=== PATIENT | female | born 1945 | race Caucasian/White ===

== ENCOUNTER 2021-03-14 11:50 | Emergency (ER) | payer OTHER ==
[2021-03-14 13:20] LABS: Basophils % 0.3 % (0-1.3); Hematocrit 42.7 % (36.0-45.0); Lymphocytes % 10.3 % (15.3-44.8); MPV 7.5 fL (7.6-11.3); RBC Red Blood Cell Count 4.79 M/uL (3.86-4.86)
[2021-03-14 13:34] LABS: Bilirubin Direct 0.2 mg/dL (0-0.2); Bilirubin Total 0.4 mg/dL (0.2-1.0); Potassium 3.5 mmol/L (3.5-5.1); Protein, Total 7.1 g/dL (6.4-8.2)
[2021-03-14] MEDS ORDERED: NA CHLORIDE 0.9% 1,000 ML ONE (13:39)
[2021-03-14] MEDS ORDERED: ONDANSETRON 4 MG/2 ML VIAL ONE (13:39)
[2021-03-14] MEDS ORDERED: MORPHINE 4 MG/ML SYR ONE (13:39)
--- NOTE | 2021-03-14 14:15 | RAD REPORT ---
EXAM DESCRIPTION: CTAbdomen Pelvis W Contrast - 03/14/2021 2:00 pm CLINICAL HISTORY: ABD PAIN COMPARISON: No comparisons TECHNIQUE: CT of the abdomen and pelvis was performed. All CT scans are performed using dose optimization technique as appropriate and may include automated exposure control or mA/KV adjustment according to patient size. FINDINGS: Lower chest: Coronary artery calcifications. Liver: Small volume ascites posterior to the right hepatic lobe. No focal liver lesions are identifie d. Biliary: No biliary ductal dilatation. Stomach: No significant focal abnormality. Duodenum: No significant focal abnormality. Pancreas: No significant abnormality. Spleen: No significant abnormality. Adrenal: No suspicious lesions. Kidney/ureter: No hydronephrosis. No renal calculi. Too small to characterize and/or benign appearing renal lesions are noted. Retroperitoneum: No retroperitoneal adenopathy. Vascular: Atherosclerosis. Bowel: No significant focal abnormality. Peritoneum: No ascites or free air. Bladder: Grossly unremarkable. Reproductive: Hysterectomy Bones: No acute fracture. Other: n/a IMPRESSION: Small volume of perihepatic ascites of uncertain etiology. No other acute process identi fied .
[2021-03-14] MEDS ORDERED: KETOROLAC 30 MG/ML INJ ONE (15:58)
--- NOTE | 2021-03-14 16:53 | RAD REPORT ---
EXAM DESCRIPTION: US - Abdomen Exam Limited - 03/14/2021 4:17 pm CLINICAL HISTORY: ABD PAIN COMPARISON: Abdomen Pelvis W Contrast dated 03/14/2021 FINDINGS: The gallbladder demonstrates no gallstones. No pericholecystic fluid or gallbladder wall t hickening. The common bile duct is normal measuring 3 mm. The liver demonstrates no findings of intrahepatic biliary dilatation. IMPRESSION: Unremarkable examination.
--- NOTE | 2021-03-14 16:58 | EDPHYS ---
Physician Documentation [facility] Name: Kavitha Augustine Age: 75 yrs Sex: Female : 1945 Arrival Date: 03/14/2021 Time: 11:53 Bed 28 Private MD: Daniel Hoang E ED Physician Eric Olson HPI: 03/14 16:14 This 75 yrs old Female presents to ER via Ambulatory with complaints of kb Abdominal Pain. 16:17 The patient presents with abdominal pain in the right upper quadrant, right lower kb quadrant. Onset: The symptoms/episode began/occurred this morning, at 06:00. The symptoms do not radiate. Associated signs and symptoms: none. The symptoms are described as constant. Modifying factors: The symptoms are alleviated by nothing, the symptoms are aggravated by nothing. Severity of pain: At its worst the pain was moderate in the emergency department the pain is unchanged. The patient has not experienced similar symptoms in the past. The patient has not recently seen a physician. Pt reports right mid abd pain that started at 0600. Has not had this pain in the past. Denies fever, n/v/d. Historical: - Allergies: 12:17 No Known Allergies; jl7 - Home Meds: 12:17 Aspirin Oral [Active]; valsartan 80 mg oral tab 1 tab 2 times per day [Active]; jl7 atorvastatin 10 mg oral tab [Active]; spironolactone 25 mg Oral tab [Active]; Zoloft Oral [Active]; ezetimibe 10 mg oral tab 1 tab once daily [Active]; - PMHx: 12:17 Hypertensive disorder; Hypercholesterolemia; Depressive disorder; jl7 - PSHx: 12:17 section; Total abdominal hysterectomy; jl7 - Immunization history:: Client reports receiving the 2nd dose of the Covid vaccine, Pfizer. - Social history:: Smoking status: Patient denies any tobacco usage or history of. ROS: 16:20 Constitutional: Negative for fever, chills, and weight loss. kb 16:20 Abdomen/GI: Positive for abdominal pain, Negative for nausea, vomiting, and diarrhea. 16:20 All other systems are negative. Exam: 16:21 Constitutional: This is a well developed, well nourished patient who is awake, alert, kb and in no acute distress. Head/Face: Normocephalic, atraumatic. ENT: Moist Mucous membranes Cardiovascular: Regular rate and rhythm with a normal S1 and S2. No gallops, murmurs, or rubs. No pulse deficits. Respiratory: Respirations even and unlabored. No increased work of breathing, no retractions or nasal flaring. Skin: Warm, dry with normal turgor. Normal color. MS/ Extremity: Pulses equal, no cyanosis. Neurovascular intact. Full, normal range of motion. Neuro: Awake and alert, GCS 15, oriented to person, place, time, and situation. Moves all extremities. Normal gait. Psych: Awake, alert, with orientation to person, place and time. Behavior, mood, and affect are within normal limits. 16:21 Abdomen/GI: Inspection: bruising, Bowel sounds: normal, Palpation: moderate abdominal tenderness, in the right upper quadrant and right lower quadrant. Vital Signs: 12:16 BP 139 / 59; Pulse 62; Resp 17; Temp 98.6; Pulse Ox 100% ; Weight 49.9 kg; Height 5 ft. jl7 5 in. (165.10 cm); Pain 7/10; 13:46 BP 125 / 53 RA (auto/reg); Pulse 55; Resp 18; Pulse Ox 100% ; Pain 0/10; ap3 15:01 BP 122 / 53; Pulse 56; Resp 17; Pulse Ox 100% on R/A; ap3 16:15 BP 134 / 57; Pulse 55; Resp 19; Pulse Ox 97% on R/A; ap3 12:16 Body Mass Index 18.30 (49.90 kg, 165.10 cm) jl7 MDM: 12:55 Patient medically screened. kb 16:14 Data reviewed: vital signs, nurses notes. Data interpreted: Pulse oximetry: on room air kb is 100 %. Interpretation: normal. Counseling: I had a detailed discussion with the patient and/or guardian regarding: the historical points, exam findings, and any diagnostic results supporting the discharge/admit diagnosis, lab results, radiology results, the need for outpatient follow up, a family practitioner, a registrar assistant, to return to the emergency department if symptoms worsen or persist or if there are any questions or concerns that arise at home. 03/14 13:02 Order name: Basic Metabolic Panel; Complete Time: 13:34 kb 03/14 13:02 Order name: CBC with Diff; Complete Time: 13:34 kb 03/14 13:02 Order name: Hepatic Function; Complete Time: 13:34 kb 03/14 13:02 Order name: Lipase; Complete Time: 13:34 kb 03/14 13:02 Order name: CT Abd/Pelvis - IV Contrast Only; Complete Time: 14:22 kb 03/14 15:22 Order name: US Abdomen Limited; Complete Time: 16:57 kb 03/14 13:02 Order name: IV Saline Lock; Complete Time: 13:10 kb 03/14 13:02 Order name: Labs collected and sent; Complete Time: 13:10 kb Administered Medications: 13:21 Drug: morphine 4 mg Route: IVP; Site: left antecubital; ap3 15:48 Follow up: Response: No adverse reaction; RASS: Alert and Calm (0) ap3 13:21 Drug: Zofran (Ondansetron) 4 mg Route: IVP; Site: left antecubital; ap3 15:48 Follow up: Response: No adverse reaction ap3 13:21 Drug: NS 0.9% 1000 ml Route: IV; Rate: 1000 ml; Site: left antecubital; ap3 15:31 Drug: Ketorolac 15 mg Route: IVP; Site: left antecubital; ap3 Disposition: 03/15 12:49 Co-signature as Attending Physician, Eric Olson MD I agree with the assessment and kdr plan of care. Disposition Summary: 03/14/21 16:57 Discharge Ordered Location: Home kb Condition: Stable kb Diagnosis - Abdominal pain, Generalized kb Followup: kb - With: Emergency Department - When: As needed - Reason: Worsening of condition Followup: kb - With: - When: 2 - 3 days - Reason: Recheck today's complaints, Continuance of care, Re-evaluation by your physician Discharge Instructions: - Discharge Summary Sheet kb - Abdominal Pain, Adult, [id number] kb Forms: - Medication Reconciliation Form kb - Thank You Letter kb - Antibiotic Education kb - Prescription Opioid Use kb Prescriptions: - Diclofenac Sodium 75 mg Oral tablet,delayed release (DR/EC) - take 1 tablet by ORAL route 2 times per day As needed; 30 tablet; Refills: 0, kb Product Selection Permitted Signatures: Dispatcher [employer] EDHenna Robledo, LEAD DATA ARCHITECT-C LEAD DATA ARCHITECT-Ckb Eric Olson MD MD kdr Jose Willis, RN RN jl7 Carolynn Oconnor RN RN ap3
--- NOTE | 2021-03-14 16:58 | ER ---
Nurse's Notes [facility] Name: Kavitha Augustine Age: 75 yrs Sex: Female : 1945 Arrival Date: 03/14/2021 Time: 11:53 Bed 28 Private MD: Daniel Hoang E Diagnosis: Abdominal pain, Generalized Presentation: 03/14 12:16 Chief complaint: Patient states: Intermittent RUQ abdominal pain since this morning at 7 0600, denies N//V/D. Coronavirus screen: At this time, the client does not indicate any symptoms associated with coronavirus-19. Ebola Screen: No symptoms or risks identified at this time. Initial Sepsis Screen: Does the patient meet any 2 criteria? No. Patient's initial sepsis screen is negative. Does the patient have a suspected source of infection? No. Patient's initial sepsis screen is negative. Risk Assessment: Do you want to hurt yourself or someone else? Patient reports no desire to harm self or others. Onset of symptoms was March 14, 2021 at 06:00. 12:16 Method Of Arrival: Ambulatory [facility] 12:16 Acuity: WANDA 3 jl7 Historical: - Allergies: 12:17 No Known Allergies; jl7 - Home Meds: 12:17 Aspirin Oral [Active]; valsartan 80 mg oral tab 1 tab 2 times per day [Active]; jl7 atorvastatin 10 mg oral tab [Active]; spironolactone 25 mg Oral tab [Active]; Zoloft Oral [Active]; ezetimibe 10 mg oral tab 1 tab once daily [Active]; - PMHx: 12:17 Hypertensive disorder; Hypercholesterolemia; Depressive disorder; jl7 - PSHx: 12:17 section; Total abdominal hysterectomy; jl7 - Immunization history:: Client reports receiving the 2nd dose of the Covid vaccine, Pfizer. - Social history:: Smoking status: Patient denies any tobacco usage or history of. Screenin:50 Abuse screen: Denies threats or abuse. Nutritional screening: No deficits noted. ap3 Tuberculosis screening: No symptoms or risk factors identified. Fall Risk None identified. Assessment: 12:49 General: Appears uncomfortable, Behavior is calm, cooperative. Pain: Complains of pain ap3 in right lower quadrant. Neuro: Level of Consciousness is awake, alert, obeys commands, Oriented to person, place, time, situation, Appropriate for age Moves all extremities. Gait is steady, Speech is normal, Facial symmetry appears normal. Cardiovascular: Patient's skin is warm and dry. Respiratory: Airway is patent Respiratory effort is even, unlabored, Respiratory pattern is regular, symmetrical. GI: Bowel sounds present X 4 quads. Abd is soft X 4 quads Abdomen is tender to palpation in right lower quadrant. 15:02 Reassessment: Patient and/or family updated on plan of care and expected duration. Pain ap3 level reassessed. Patient is alert, oriented x 3, equal unlabored respirations, skin warm/dry/pink. Vital Signs: 12:16 BP 139 / 59; Pulse 62; Resp 17; Temp 98.6; Pulse Ox 100% ; Weight 49.9 kg; Height 5 ft. jl7 5 in. (165.10 cm); Pain 7/10; 13:46 BP 125 / 53 RA (auto/reg); Pulse 55; Resp 18; Pulse Ox 100% ; Pain 0/10; ap3 15:01 BP 122 / 53; Pulse 56; Resp 17; Pulse Ox 100% on R/A; ap3 16:15 BP 134 / 57; Pulse 55; Resp 19; Pulse Ox 97% on R/A; ap3 12:16 Body Mass Index 18.30 (49.90 kg, 165.10 cm) jl7 ED Course: 11:53 Patient arrived in ED. mr 11:53 Daniel Hoang MD is Private Physician. mr 12:17 Triage completed. jl7 12:17 Arm band placed on right wrist. jl7 12:49 Carolynn Oconnor, RN is Primary Nurse. ap3 12:51 Patient has correct armband on for positive identification. Placed in gown. Bed in low ap3 position. Call light in reach. Side rails up X 1. Adult w/ patient. Pulse ox on. NIBP on. Door closed. Noise minimized. 12:54 Henna Perez FNP-C [facility]. kb 12:54 Eric Olson MD is Attending Physician. kb 14:00 CT Abd/Pelvis - IV Contrast Only In Process Unspecified. EDMS 16:17 US Abdomen Limited In Process Unspecified. EDMS 16:57 Daniel Hoang MD is Referral Physician. kb 17:06 No provider procedures requiring assistance completed. IV discontinued, intact, ld1 bleeding controlled, No redness/swelling at site. Administered Medications: 13:21 Drug: morphine 4 mg Route: IVP; Site: left antecubital; ap3 15:48 Follow up: Response: No adverse reaction; RASS: Alert and Calm (0) ap3 13:21 Drug: Zofran (Ondansetron) 4 mg Route: IVP; Site: left antecubital; ap3 15:48 Follow up: Response: No adverse reaction ap3 13:21 Drug: NS 0.9% 1000 ml Route: IV; Rate: 1000 ml; Site: left antecubital; ap3 15:31 Drug: Ketorolac 15 mg Route: IVP; Site: left antecubital; ap3 Outcome: 16:57 Discharge ordered by MD. kb 17:07 Discharged to home ambulatory, with family. ld1 17:07 Condition: stable 17:07 Discharge instructions given to patient, family, Instructed on discharge instructions, follow up and referral plans. medication usage, Demonstrated understanding of instructions, follow-up care, medications, Prescriptions given X 1. 17:07 Patient left the ED. ld1 Signatures: Dispatcher [employer] EDMS Henna Perez, SCHOOL BUS DISPATCHER-C SCHOOL BUS DISPATCHER-Belinda ReiEle Jose Willis RN RN jl7 Carolynn Oconnor RN RN ap3 Viki Matamoros RN RN ld1
[2021-03-14 17:11] VITALS: TEMP 98.6
[2021-03-14 17:15] VITALS: BP 134/57; O2SAT 97
== END 2021-03-14 17:07 | disposition home or self-care (01) ==
LOC: ER 11:50
DX: R10.84 Generalized abdominal pain (principal); E78.00 Pure hypercholesterolemia, unspecified; I10 Essential (primary) hypertension; Z79.82 Long term (current) use of aspirin
CPT/HCPCS: 85025; 80048; 36415; 80076; 83690; 74177; 76705; 96375; 96374; 99284; Q9967; J7030; J2405

== ENCOUNTER 2023-04-12 10:29 | Emergency (ER) | payer OTHER ==
--- OUTSIDE RECORDS SUMMARY | 2023-04-12 10:35 | XMS REPORT | Continuity of Care Document ---
:1945 Author Organization [facility] t Address [address] [place] [address] [place] [id number] Care Team Providers Name Role Phone Natalya Kline MD, Daniel Primary Care Physician [phone] Jeanne Bearden MA Attending Clinician Unavailable Yun VEGA, Amalia Mullins Attending Clinician [phone] [email or web address] Attending Clinician Unavailable Aubrey VEGA, Hipolito North Attending Clinician [email or web address] Attending Clinician Unavailable Lisse_S Attending Clinician Unavailable Rina Ortez Attending Clinician [phone] BEKAH BARROS Attending Clinician Unavailable JIN PALACIO Attending Clinician Unavailable [email or web address] Admitting Clinician Unavailable [email or web address] Admitting Clinician Unavailable Lisse_S Admitting Clinician Unavailable JIN PALACIO Admitting Clinician Unavailable Payers Payer Name Policy Type Policy Number Effective Date Expiration Date S pati ROBERT (MEDICARE [id number] 2013 REPLACEMENT PPO) 00:00:00 Problems Condition Condition Condition Status Onset Resolution Last Treating Co mments Source Name Details Category Date Date Treatment Clinician Date Chronic Chronic Problem Active [facility] infective Infective -04 [facility] pavithra cystitis Cystitis 00:00: 00 Atrophic Atrophic Disease Active [facility] vaginitis vaginitis 12-09 00:00: Hosp[facility] 00 l Urge Urge Disease Active [facility] incontinen incontinen 12-09 st ce of ce of 00:00: Hospita urine urine 00 l Cerebral Cerebral Disease Active [facility] ventriculo ventriculo 11-06 [facility] megaly megaly 00:00: Hospita 00 l 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 Multiple small chronic infarcts noted on brain MRI w/wo 12/06/17. Location: right pontine lacune, left cerebella r cortical, right cerebella r. 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 Abnormalit Abnormalit Disease Recurre [facility] y of gait y of gait nce 6-14 st due to due to 00:00: Hospita impairment impairment 00 l of balance of balance Head Head Disease Recurre Overview: [facility] trauma trauma nce 6-[address] 00:00: g of this Hospita 00 note l might be different from the original. Multiple due to falls. Loss of Loss of Disease Active 2016-05 [facility] hair hair 07-01 st 00:00: Hospita 00 l Pain of Pain of Disease Active 2016-05 [facility] right right 2 st lower lower 00:00: Hospita extremity extremity 00 l Edema Edema Disease Active [facility] 09-16 st 00:00: [facility]ospita 00 l Hypertensi Hypertensi Disease Active M [facility] on on 4-19 st 00:00: Hospita 00 l Hyperlipid Hyperlipid Disease Active M ethodi emia emia 09-16 00:00: Hospita 00 l Hypothyroi Hypothyroi Disease Active M [facility] dism dism 09-16 00:00: Hospita 00 l Hyperthyro Hyperthyro Disease Active M [facility]i idism idism 09-16 00:00: Hospita 00 l Chronic Chronic Disease Active [facility] coronary coronary 09-16 artery artery 00:00: [facility]ospita disease disease 00 l Disorder Disorder Problem Active [facility] a of trunk of Trunk 02-15 Medica l 00:00: 00 Herpes Herpes Disease Active [facility] zoster zoster 02-15 st with with 00:00: Hospita nervous nervous 00 l system system complicati complicati on on Meralgia Meralgia Disease Active [facility] parestheti parestheti 02-15 ca ca 00:00: Hospita 00 l Allergies, Adverse Reactions, Alerts Allergy Allergy Status Severity Reaction(s) Onset Inactive Treating Comm ents Source Name Type Date Date Clinician Codeine Propensi Active Other (See Met hodi ty to Comments) 07-22 st adverse 00:00: Hospita reaction 00 l s to drug Sulfa Propensi Active Unknown 2019-05 [facility] (Sulfona ty to Reaction 06-10 st mide adverse 00:00: Hospita Antibiot reaction 00 l ics) s to drug Ciproflo Propensi Active 2016-05 [facility] xacin-Fl ty to 07-01 st uocinolo adverse 00:00: Hospita ne reaction 00 l s to drug Quinolon Propensi Active 2016-05 [facility] es ty to 07-01 st adverse 00:00: Hospita reaction 00 l s to drug Naproxen Propensi Active Hives [facility] Sodium ty to 09-18 st adverse 00:00: Hospita reaction 00 l s to drug Pseudoep Propensi Active Other (See Keeps her [facility] hedrine ty to Comments) 09-[address] Hcl adverse 00:00: night Hospita reaction 00 l s to drug Aleve Allergy Active [facility] to 02-15 Medical substanc 00:00: e 00 Codeine Allergy Active [facility] to Medical substanc e SULFA Allergy Active [facility] (SULFONA to Medical MIDE substanc ANTIBIOT e ICS) Lisinopr Propensi Active [facility] i il ty to st adverse Hospita reaction l s to drug Rosuvast Propensi Active Other [facility] atin ty to reaction( st adverse s): Hospita reaction Myalgias l s to (Muscle drug Pain) Simvasta Propensi Active Other [facility] tin ty to reaction( st adverse s): Hospita reaction Myalgias l s to (Muscle drug Pain) Family History Family Member Diagnosis Comments Start Date Stop Date Source Natural brother Heart disease [facility] father Heart disease [facility] father Hypertension [facility] Natural mother Heart disease [facility] mother Hypertension [facility] Paternal grandmother Throat cancer [facility] sister Heart disease [facility] sister Hypertension [facility] Social History Social Habit Start Date Stop Date Quantity Comments Source Sexual orientation 2019-12-17 Heterosexual [facility] 22:09:28 (finding) Hospital Alcohol intake 2022-06-07 2022-06-07 Current drinker of [facility] 00:00:00 00:00:00 alcohol (finding) Hospita l History of Social 2022-06-07 2022-06-[address] function 00:00:00 00:00:00 Hospital Alcohol Comment 2017-11-29 2017-11-29 occasional [facility] 00:00:00 00:00:00 Hospital Tobacco use and 2016-09-16 2016-09-16 Smokeless tobacco [facility] exposure 00:00:00 00:00:00 non-user Hospital Sex Assigned At [birth year] F [facility] 00:00:00 00:00:00 Hospital Smoking Status Start Date Stop Date Source Never smoked tobacco [facility] Medications Ordered Filled Start Stop Current Ordering Indication Dosage Frequency Signature Comments Components Source Medication Medication Date Date Medication? Clinician (SIG) Name Name atorvastati Yes TAKE ONE [facility] (LIPITOR) 8-[address] 10 mg 00:00: MOUTH Hospita tablet 00 THREE l TIMES A WEEK valsartan Yes TAKE 2 [facility] i (DIOVAN) 80 6-[address] MG tablet 00:00: (160 MG) Hosp long 00 BY MOUTH l TWICE A DAY spironolact 2022-0 Yes TAKE 1 [facility] one 2-[address] (ALDACTONE) 00:00: MOUTH Hospi ta 25 MG 00 EVERY DAY l tablet multivitami 2022-0 Yes 1{tbl} QD Take 1 [facility] 1-[address] (THERAGRAN) 15:08: mouth Hospi ta tablet 12 daily. l loperamide 2022-0 Yes 1{tbl} Take 1 Met hodi HCl 1-[address] (IMODIUM 15:08: mouth as Hospi ta A-D ORAL) 12 needed. l estrogens, 2022-0 Yes .625mg QD Take 0.625 [facility] conjugated, 1-[address] (PREMARIN) 15:08: mouth Hospit a 0.625 MG 12 daily. l tablet cyanocobala 2022-0 Yes QD Take by Met hodi min, 1-[address] vitamin 15:08: daily. Hospita B-12, 12 l (VITAMIN B-12 ORAL) cholecalcif 2022-0 Yes 5000U QD Take 5,000 [facility] brianne, 1-[address] vitamin D3, 15:08: mouth Hospi ta 5,000 unit 12 daily. l capsule omeprazole 2022-0 Yes 20mg QD Take 20 mg M ethodi (PriLOSEC) 1-[address] 20 MG 15:08: daily. Hospita capsule 12 l levothyroxi 2022-0 Yes 25ug QD Take 25 Met hodi ne 1-[address] (SYNTHROID) 15:08: mouth Hospi ta 25 mcg 12 daily. l tablet gabapentin 2022-0 Yes 100mg [id number] Take 100 [facility] (NEURONTIN) 1-04 [id number] mg by s t 100 mg 15:08: 3D mouth 3 Hospita capsule 12 (three) l times a day. estrogens, 2022-0 Yes .625mg QD Take 0.625 [facility] conjugated, 1-[address] (PREMARIN) 15:08: mouth Hospit a 0.625 MG 12 daily. l tablet Take daily for 21 days then do not take for 7 days. aspirin 2022-0 Yes 81mg QD Take 81 mg Meth [facility] (ECOTRIN) 1-[address] 81 MG 15:05: daily. Hospita enteric 55 l coated tablet ascorbic Yes QD Take by [facility] acid -[address] (VITAMIN C 15:05: daily. Hospi ta ORAL) 55 l sertraline Yes TAKE 2 [facility] di (ZOLOFT) 50 7-[address] MG tablet 00:00: MOUTH Hospita 00 EVERY DAY l atorvastati 2022- No TAKE ONE M ethodi n (LIPITOR) 11-[address] 10 mg 00:00: 00:00 MOUTH Hospita tablet 00 :00 THREE l TIMES A WEEK valsartan 2022- No TAKE 2 [facility] di (DIOVAN) 80 11-03-[address] MG tablet 00:00: 00:00 (160 MG) Hos tiffany 00 :00 BY MOUTH l TWICE A DAY ezetimibe Yes TAKE 1 [facility] i (ZETIA) 10 06-[address] mg tablet 00:00: MOUTH Hospita 00 EVERY DAY l spironolact 2022- No TAKE 1 Met hodi one 06-02 02-[address] (ALDACTONE) 00:00: 00:00 MOUTH Hosp long 25 MG 00 :00 EVERY DAY l tablet diltiazem 2020-05- No 120mg Q.5D Take 1 [facility] garry SR [id number] (CardIZEM 00:00: 05:59 (120 mg Hosp long SR) 120 MG 00 :00 total) by l 12 hr mouth 2 capsule (two) times a day. aspirin 81 aspirin 81 No aspirin 81 [facility] mg mg mg Medical atorvastati atorvastati No atorvastat [facility] n 10 mg n 10 mg in 10 mg Medic al tablet TAKE tablet TAKE tablet ONE TABLET ONE TABLET TAKE ONE BY MOUTH BY MOUTH TABLET BY THREE TIMES THREE TIMES MOUTH A WEEK A WEEK THREE TIMES A WEEK BinaxNOW BinaxNOW No BinaxNOW Arleen via COVID-19 Ag COVID-19 Ag COVID-19 Medical Self Test Self Test Ag Self kit REFER kit REFER Test kit TO TO REFER TO MANUFACTURE MANUFACTURE MANUFACTUR R R ER INSTRUCTION INSTRUCTION INSTRUCTIO S INCLUDED S INCLUDED NS IN IN INCLUDED PACKAGING PACKAGING IN PACKAGING diclofenac diclofenac No diclofenac [facility] sodium 75 sodium 75 sodium 75 Medical mg mg mg tablet,rebecca tablet,rebecca tablet,del yed release yed release ayed TAKE 1 TAKE 1 release TABLET BY TABLET BY TAKE 1 MOUTH TWICE MOUTH TWICE TABLET BY DAILY DAILY MOUTH NEEDED NEEDED TWICE DAILY NEEDED diltiazem diltiazem No diltiazem [facility] ER 120 mg ER 120 mg ER 120 mg Medical capsule,ext capsule,ext capsule,ex ended ended tended release 12 release 12 release 12 hr TAKE 1 hr TAKE 1 hr TAKE 1 CAPSULE BY CAPSULE BY CAPSULE BY MOUTH TWICE MOUTH TWICE MOUTH A DAY A DAY TWICE A DAY donepezil donepezil No donepezil [facility] 10 mg 10 mg 10 mg Medical tablet TAKE tablet TAKE tablet 1 TABLET BY 1 TABLET BY TAKE 1 MOUTH EVERY MOUTH EVERY TABLET BY DAY AT DAY AT MOUTH NIGHT NIGHT EVERY DAY AT NIGHT estradiol estradiol No estradiol [facility] 0.01% (0.1 0.01% (0.1 0.01% (0.1 Medical mg/gram) mg/gram) mg/gram) vaginal vaginal vaginal cream cream cream INSERT OR INSERT OR INSERT OR APPLY ONE APPLY ONE APPLY ONE GRAM TWICE GRAM TWICE GRAM TWICE WEEKLY WEEKLY WEEKLY VAGINALLY VAGINALLY VAGINALLY FOR FOR FOR DURATION OF DURATION OF DURATION USE USE OF USE ezetimibe ezetimibe No ezetimibe [facility] 10 mg 10 mg 10 mg Medical tablet TAKE tablet TAKE tablet 1 TABLET BY 1 TABLET BY TAKE 1 MOUTH EVERY MOUTH EVERY TABLET BY DAY DAY MOUTH EVERY DAY gabapentin gabapentin No gabapentin [facility] 100 mg 100 mg 100 mg Medical capsule capsule capsule TAKE 1 TAKE 1 TAKE 1 CAPSULE BY CAPSULE BY CAPSULE BY MOUTH MOUTH MOUTH EVERYDAY AT EVERYDAY AT EVERYDAY BEDTIME BEDTIME AT BEDTIME Imodium A-D Imodium A-D No Imodium [facility] 2 daily q 2 daily q A-D 2 Medi pavithra morning morning daily q morning levothyroxi levothyroxi No levothyrox [facility] ne 25 mcg ne 25 mcg ine 25 mcg Medical tablet TAKE tablet TAKE tablet 1 TABLET BY 1 TABLET BY TAKE 1 MOUTH EVERY MOUTH EVERY TABLET BY DAY IN THE DAY IN THE MOUTH MORNING ON MORNING ON EVERY DAY EMPTY EMPTY IN THE STOMACH STOMACH MORNING ON EMPTY STOMACH meclizine meclizine No meclizine [facility] 25 mg 25 mg 25 mg Medical tablet TAKE tablet TAKE tablet 1 TABLET BY 1 TABLET BY TAKE 1 MOUTH THREE MOUTH THREE TABLET BY TIMES A DAY TIMES A DAY MOUTH NEEDED NEEDED THREE TIMES A DAY NEEDED metoclopram metoclopram No metoclopra [facility] ijeoma 10 mg ijeoma 10 mg mide 10 mg Medical tablet TAKE tablet TAKE tablet 3 TABLETS 3 TABLETS TAKE 3 BY MOUTH BY MOUTH TABLETS BY DIRECTED DIRECTED MOUTH USE USE DIRECTED DIRECTED DIRECTED USE PER YOUR PER YOUR DIRECTED COLONOSCOPY COLONOSCOPY PER YOUR PREP PACKET PREP PACKET COLONOSCOP Y PREP PACKET montelukast montelukast No montelukas [facility] 10 mg 10 mg t 10 mg Medical tablet TAKE tablet TAKE tablet 1 TABLET BY 1 TABLET BY TAKE 1 MOUTH EVERY MOUTH EVERY TABLET BY DAY DAY MOUTH EVERY DAY neomycin-po neomycin-po No neomycin-p [facility] lymyxin-hyd lymyxin-hyd olymyxin-h Medical rocort 3.5 rocort 3.5 ydrocort mg-10,000 mg-10,000 3.5 unit/mL-1 % unit/mL-1 % mg-10,000 ear ear unit/mL-1 drops,susp drops,susp % ear INSTILL 4 INSTILL 4 drops,susp DROPS INTO DROPS INTO INSTILL 4 AFFECTED AFFECTED DROPS INTO EAR 3 TIMES EAR 3 TIMES AFFECTED A DAY A DAY EAR 3 TIMES A DAY nitrofurant nitrofurant No nitrofuran [facility] oin oin toin Medical monohydrate monohydrate monohydrat /macrocryst /macrocryst e/macrocry als 100 mg als 100 mg stals 100 capsule capsule mg capsule Take 1 Take 1 Take 1 capsule bid capsule bid capsule x 7 days x 7 days bid x 7 days omeprazole omeprazole No omeprazole [facility] 20 mg 20 mg 20 mg Medical capsule,del capsule,del capsule,de ayed ayed layed release release release TAKE 1 TAKE 1 TAKE 1 CAPSULE BY CAPSULE BY CAPSULE BY MOUTH IN MOUTH IN MOUTH IN THE MORNING THE MORNING THE MORNING Premarin Premarin No Premarin Arleen via 0.625 mg 0.625 mg 0.625 mg Med ical tablet TAKE tablet TAKE tablet 1 TABLET BY 1 TABLET BY TAKE 1 MOUTH EVERY MOUTH EVERY TABLET BY DAY DAY MOUTH EVERY DAY sertraline sertraline No sertraline [facility] 50 mg 50 mg 50 mg Medical tablet TAKE tablet TAKE tablet 2 TABLETS 2 TABLETS TAKE 2 BY MOUTH BY MOUTH TABLETS BY EVERY DAY EVERY DAY MOUTH EVERY DAY spironolact spironolact No spironolac [facility] one 25 mg one 25 mg tone 25 mg Medical tablet TAKE tablet TAKE tablet 1 TABLET BY 1 TABLET BY TAKE 1 MOUTH EVERY MOUTH EVERY TABLET BY DAY DAY MOUTH EVERY DAY Sutab Sutab No Sutab [facility] 1.479-0.188 1.479-0.188 1.479-0.18 Medical -0.225 gram -0.225 gram 8-0.225 tablet tablet gram PLEASE SEE PLEASE SEE tablet ATTACHED ATTACHED PLEASE SEE FOR FOR ATTACHED DETAILED DETAILED FOR DIRECTIONS DIRECTIONS DETAILED DIRECTIONS Theracran Theracran No 1capsul BID Theracran [facility] 650 mg 650 mg e(s) 650 mg Medical capsule capsule capsule Take 1 Take 1 Take 1 capsule capsule capsule twice a day twice a day twice a by oral by oral day by route for route for oral route 90 days. 90 days. for 90 days. tramadol 50 tramadol 50 No tramadol [facility] mg tablet mg tablet 50 mg Medi pavithra TAKE ONE TAKE ONE tablet TABLET BY TABLET BY TAKE ONE MOUTH TWICE MOUTH TWICE TABLET BY A DAY A DAY MOUTH NEEDED FOR NEEDED FOR TWICE A JOINT PAIN, JOINT PAIN, DAY ICD - ICD - NEEDED FOR M19.90 M19.90 JOINT PAIN, ICD - M19.90 valsartan valsartan No valsartan [facility] 80 mg 80 mg 80 mg Medical tablet TAKE tablet TAKE tablet 2 TABLETS 2 TABLETS TAKE 2 (160 MG) BY (160 MG) BY TABLETS MOUTH TWICE MOUTH TWICE (160 MG) A DAY A DAY BY MOUTH TWICE A DAY Vitamin B12 Vitamin B12 No Vitamin [facility] B12 Medical Vitamin C Vitamin C No Vitamin C [facility] Medical Vitamin D3 Vitamin D3 No Vitamin D3 [facility] 5000unit 5000unit 5000unit Med ical aspirin 81 aspirin 81 No aspirin 81 [facility] mg mg mg Medical atorvastati atorvastati No atorvastat [facility] n 10 mg n 10 mg in 10 mg Medic al tablet TAKE tablet TAKE tablet ONE TABLET ONE TABLET TAKE ONE BY MOUTH BY MOUTH TABLET BY THREE TIMES THREE TIMES MOUTH A WEEK A WEEK THREE TIMES A WEEK Gemtesa 75 Gemtesa 75 No 1 Q1D Gemtesa 75 [facility] mg tablet mg tablet mg tablet Medical Take 1 Take 1 Take 1 tablet tablet tablet every day every day every day by oral by oral by oral route for route for route for 90 days. 90 days. 90 days. nitrofurant nitrofurant No nitrofuran [facility] oin oin toin Medical monohydrate monohydrate monohydrat /macrocryst /macrocryst e/macrocry als 100 mg als 100 mg stals 100 capsule capsule mg capsule Take 1 Take 1 Take 1 capsule capsule capsule every 12 every 12 every 12 hours by hours by hours by oral route oral route oral route for 7 days. for 7 days. for 7 days. Premarin Premarin No Premarin Arleen via 0.625 mg 0.625 mg 0.625 mg Med ical tablet TAKE tablet TAKE tablet 1 TABLET BY 1 TABLET BY TAKE 1 MOUTH EVERY MOUTH EVERY TABLET BY DAY DAY MOUTH EVERY DAY sertraline sertraline No sertraline [facility] 50 mg 50 mg 50 mg Medical tablet TAKE tablet TAKE tablet 2 TABLETS 2 TABLETS TAKE 2 BY MOUTH BY MOUTH TABLETS BY EVERY DAY EVERY DAY MOUTH EVERY DAY spironolact spironolact No spironolac [facility] one 25 mg one 25 mg tone 25 mg Medical tablet TAKE tablet TAKE tablet 1 TABLET BY 1 TABLET BY TAKE 1 MOUTH EVERY MOUTH EVERY TABLET BY DAY DAY MOUTH EVERY DAY valsartan valsartan No valsartan [facility] 80 mg 80 mg 80 mg Medical tablet TAKE tablet TAKE tablet 2 TABLETS 2 TABLETS TAKE 2 (160 MG) BY (160 MG) BY TABLETS MOUTH TWICE MOUTH TWICE (160 MG) A DAY A DAY BY MOUTH TWICE A DAY aspirin 81 aspirin 81 No aspirin 81 [facility] mg mg mg Medical atorvastati atorvastati No atorvastat [facility] n 10 mg n 10 mg in 10 mg Medic al tablet TAKE tablet TAKE tablet ONE TABLET ONE TABLET TAKE ONE BY MOUTH BY MOUTH TABLET BY THREE TIMES THREE TIMES MOUTH A WEEK A WEEK THREE TIMES A WEEK Gemtesa 75 Gemtesa 75 No 1 Q1D Gemtesa 75 [facility] mg tablet mg tablet mg tablet Medical Take 1 Take 1 Take 1 tablet tablet tablet every day every day every day by oral by oral by oral route for route for route for 90 days. 90 days. 90 days. ketorolac ketorolac No ketorolac [facility] 0.5 % eye 0.5 % eye 0.5 % eye Medical drops drops drops PLEASE SEE PLEASE SEE PLEASE SEE ATTACHED ATTACHED ATTACHED FOR FOR FOR DETAILED DETAILED DETAILED DIRECTIONS DIRECTIONS DIRECTIONS levothyroxi levothyroxi No levothyrox [facility] ne 25 mcg ne 25 mcg ine 25 mcg Medical tablet TAKE tablet TAKE tablet 1 TABLET BY 1 TABLET BY TAKE 1 MOUTH EVERY MOUTH EVERY TABLET BY DAY IN THE DAY IN THE MOUTH MORNING ON MORNING ON EVERY DAY EMPTY EMPTY IN THE STOMACH STOMACH MORNING ON EMPTY STOMACH nitrofurant nitrofurant No nitrofuran [facility] oin oin toin Medical monohydrate monohydrate monohydrat /macrocryst /macrocryst e/macrocry als 100 mg als 100 mg stals 100 capsule capsule mg capsule Take 1 Take 1 Take 1 capsule capsule capsule every 12 every 12 every 12 hours by hours by hours by oral route oral route oral route for 7 days. for 7 days. for 7 days. polymyxin B polymyxin B No polymyxin [facility] sulfate sulfate B sulfate Medi pavithra 10,000 10,000 10,000 unit-trimet unit-trimet unit-trime hoprim 1 hoprim 1 thoprim 1 mg/mL eye mg/mL eye mg/mL eye drops drops drops INSTILL INSTILL INSTILL STARTING STARTING STARTING AFTER AFTER AFTER SURGERY, SURGERY, SURGERY, INSTILL 1 INSTILL 1 INSTILL 1 DROP INTO DROP INTO DROP INTO RIGHT EYE 3 RIGHT EYE 3 RIGHT EYE TIMES A DAY TIMES A DAY 3 TIMES A FOR 1 WEEK FOR 1 WEEK DAY FOR 1 AFTER AFTER WEEK AFTER SURGERY SURGERY SURGERY prednisolon prednisolon No prednisolo [facility] e acetate 1 e acetate 1 ne acetate Medical % eye % eye 1 % eye drops,suspe drops,suspe drops,susp nsion nsion ension PLEASE SEE PLEASE SEE PLEASE SEE ATTACHED ATTACHED ATTACHED FOR FOR FOR DETAILED DETAILED DETAILED DIRECTIONS DIRECTIONS DIRECTIONS Premarin Premarin No Premarin Arleen via 0.625 mg 0.625 mg 0.625 mg Med ical tablet TAKE tablet TAKE tablet 1 TABLET BY 1 TABLET BY TAKE 1 MOUTH EVERY MOUTH EVERY TABLET BY DAY DAY MOUTH EVERY DAY sertraline sertraline No sertraline [facility] 50 mg 50 mg 50 mg Medical tablet TAKE tablet TAKE tablet 2 TABLETS 2 TABLETS TAKE 2 BY MOUTH BY MOUTH TABLETS BY EVERY DAY EVERY DAY MOUTH EVERY DAY spironolact spironolact No spironolac [facility] one 25 mg one 25 mg tone 25 mg Medical tablet TAKE tablet TAKE tablet 1 TABLET BY 1 TABLET BY TAKE 1 MOUTH EVERY MOUTH EVERY TABLET BY DAY DAY MOUTH EVERY DAY valsartan valsartan No valsartan [facility] 80 mg 80 mg 80 mg Medical tablet TAKE tablet TAKE tablet 2 TABLETS 2 TABLETS TAKE 2 (160 MG) BY (160 MG) BY TABLETS MOUTH TWICE MOUTH TWICE (160 MG) A DAY A DAY BY MOUTH TWICE A DAY aspirin 81 aspirin 81 No aspirin 81 [facility] mg mg mg Medical atorvastati atorvastati No atorvastat [facility] n 10 mg n 10 mg in 10 mg Medic al tablet TAKE tablet TAKE tablet ONE TABLET ONE TABLET TAKE ONE BY MOUTH BY MOUTH TABLET BY THREE TIMES THREE TIMES MOUTH A WEEK A WEEK THREE TIMES A WEEK Botox 100 Botox 100 No Botox 100 [facility] unit unit unit Medical injection injection injection Gemtesa 75 Gemtesa 75 No 1 Q1D Gemtesa 75 [facility] mg tablet mg tablet mg tablet Medical Take 1 Take 1 Take 1 tablet tablet tablet every day every day every day by oral by oral by oral route for route for route for 90 days. 90 days. 90 days. ketorolac ketorolac No ketorolac [facility] 0.5 % eye 0.5 % eye 0.5 % eye Medical drops drops drops PLEASE SEE PLEASE SEE PLEASE SEE ATTACHED ATTACHED ATTACHED FOR FOR FOR DETAILED DETAILED DETAILED DIRECTIONS DIRECTIONS DIRECTIONS levothyroxi levothyroxi No levothyrox [facility] ne 25 mcg ne 25 mcg ine 25 mcg Medical tablet TAKE tablet TAKE tablet 1 TABLET BY 1 TABLET BY TAKE 1 MOUTH EVERY MOUTH EVERY TABLET BY DAY IN THE DAY IN THE MOUTH MORNING ON MORNING ON EVERY DAY EMPTY EMPTY IN THE STOMACH STOMACH MORNING ON EMPTY STOMACH Premarin Premarin No Premarin Arleen via 0.625 mg 0.625 mg 0.625 mg Med ical tablet TAKE tablet TAKE tablet 1 TABLET BY 1 TABLET BY TAKE 1 MOUTH EVERY MOUTH EVERY TABLET BY DAY DAY MOUTH EVERY DAY sertraline sertraline No sertraline [facility] 50 mg 50 mg 50 mg Medical tablet TAKE tablet TAKE tablet 2 TABLETS 2 TABLETS TAKE 2 BY MOUTH BY MOUTH TABLETS BY EVERY DAY EVERY DAY MOUTH EVERY DAY spironolact spironolact No spironolac [facility] one 25 mg one 25 mg tone 25 mg Medical tablet TAKE tablet TAKE tablet 1 TABLET BY 1 TABLET BY TAKE 1 MOUTH EVERY MOUTH EVERY TABLET BY DAY DAY MOUTH EVERY DAY valsartan valsartan No valsartan [facility] 80 mg 80 mg 80 mg Medical tablet TAKE tablet TAKE tablet 2 TABLETS 2 TABLETS TAKE 2 (160 MG) BY (160 MG) BY TABLETS MOUTH TWICE MOUTH TWICE (160 MG) A DAY A DAY BY MOUTH TWICE A DAY aspirin 81 aspirin 81 No aspirin 81 [facility] mg mg mg Medical atorvastati atorvastati No atorvastat [facility] n 10 mg n 10 mg in 10 mg Medic al tablet TAKE tablet TAKE tablet ONE TABLET ONE TABLET TAKE ONE BY MOUTH BY MOUTH TABLET BY THREE TIMES THREE TIMES MOUTH A WEEK A WEEK THREE TIMES A WEEK Botox 100 Botox 100 No Botox 100 [facility] unit unit unit Medical injection injection injection ketorolac ketorolac No ketorolac [facility] 0.5 % eye 0.5 % eye 0.5 % eye Medical drops drops drops PLEASE SEE PLEASE SEE PLEASE SEE ATTACHED ATTACHED ATTACHED FOR FOR FOR DETAILED DETAILED DETAILED DIRECTIONS DIRECTIONS DIRECTIONS levothyroxi levothyroxi No levothyrox [facility] ne 25 mcg ne 25 mcg ine 25 mcg Medical tablet TAKE tablet TAKE tablet 1 TABLET BY 1 TABLET BY TAKE 1 MOUTH EVERY MOUTH EVERY TABLET BY DAY IN THE DAY IN THE MOUTH MORNING ON MORNING ON EVERY DAY EMPTY EMPTY IN THE STOMACH STOMACH MORNING ON EMPTY STOMACH nitrofurant nitrofurant No nitrofuran [facility] oin oin toin Medical monohydrate monohydrate monohydrat /macrocryst /macrocryst e/macrocry als 100 mg als 100 mg stals 100 capsule capsule mg capsule TAKE 1 TAKE 1 TAKE 1 CAPSULE BY CAPSULE BY CAPSULE BY MOUTH EVERY MOUTH EVERY MOUTH 12 HOURS 12 HOURS EVERY 12 FOR 7 DAYS FOR 7 DAYS HOURS FOR 7 DAYS phenazopyri phenazopyri No phenazopyr [facility] dine 200 mg dine 200 mg idine 200 Medical tablet TAKE tablet TAKE mg tablet 1 TABLET 3 1 TABLET 3 TAKE 1 TIMES A DAY TIMES A DAY TABLET 3 MOUTH MOUTH TIMES A NEEDED. NEEDED. DAY MOUTH NEEDED. Premarin Premarin No Premarin Arleen via 0.625 mg 0.625 mg 0.625 mg Med ical tablet TAKE tablet TAKE tablet 1 TABLET BY 1 TABLET BY TAKE 1 MOUTH EVERY MOUTH EVERY TABLET BY DAY DAY MOUTH EVERY DAY spironolact spironolact No spironolac [facility] one 25 mg one 25 mg tone 25 mg Medical tablet TAKE tablet TAKE tablet 1 TABLET BY 1 TABLET BY TAKE 1 MOUTH EVERY MOUTH EVERY TABLET BY DAY DAY MOUTH EVERY DAY valsartan valsartan No valsartan [facility] 80 mg 80 mg 80 mg Medical tablet TAKE tablet TAKE tablet 2 TABLETS 2 TABLETS TAKE 2 (160 MG) BY (160 MG) BY TABLETS MOUTH TWICE MOUTH TWICE (160 MG) A DAY A DAY BY MOUTH TWICE A DAY aspirin 81 aspirin 81 No aspirin 81 [facility] mg mg mg Medical atorvastati atorvastati No atorvastat [facility] n 10 mg n 10 mg in 10 mg Medic al tablet TAKE tablet TAKE tablet ONE TABLET ONE TABLET TAKE ONE BY MOUTH BY MOUTH TABLET BY THREE TIMES THREE TIMES MOUTH A WEEK A WEEK THREE TIMES A WEEK Botox 100 Botox 100 No Botox 100 [facility] unit unit unit Medical injection injection injection ketorolac ketorolac No ketorolac [facility] 0.5 % eye 0.5 % eye 0.5 % eye Medical drops drops drops PLEASE SEE PLEASE SEE PLEASE SEE ATTACHED ATTACHED ATTACHED FOR FOR FOR DETAILED DETAILED DETAILED DIRECTIONS DIRECTIONS DIRECTIONS levothyroxi levothyroxi No levothyrox [facility] ne 25 mcg ne 25 mcg ine 25 mcg Medical tablet TAKE tablet TAKE tablet 1 TABLET BY 1 TABLET BY TAKE 1 MOUTH EVERY MOUTH EVERY TABLET BY DAY IN THE DAY IN THE MOUTH MORNING ON MORNING ON EVERY DAY EMPTY EMPTY IN THE STOMACH STOMACH MORNING ON EMPTY STOMACH Myrbetriq Myrbetriq No 1 Q1D Myrbetriq [facility] 50 mg 50 mg 50 mg Medical tablet,exte tablet,exte tablet,ext nded nded ended release release release Take 1 Take 1 Take 1 tablet tablet tablet every day every day every day by oral by oral by oral route. route. route. phenazopyri phenazopyri No phenazopyr [facility] dine 200 mg dine 200 mg idine 200 Medical tablet TAKE tablet TAKE mg tablet 1 TABLET 3 1 TABLET 3 TAKE 1 TIMES A DAY TIMES A DAY TABLET 3 MOUTH MOUTH TIMES A NEEDED. NEEDED. DAY MOUTH NEEDED. Premarin Premarin No Premarin Arleen via 0.625 mg 0.625 mg 0.625 mg Med ical tablet TAKE tablet TAKE tablet 1 TABLET BY 1 TABLET BY TAKE 1 MOUTH EVERY MOUTH EVERY TABLET BY DAY DAY MOUTH EVERY DAY spironolact spironolact No spironolac [facility] one 25 mg one 25 mg tone 25 mg Medical tablet TAKE tablet TAKE tablet 1 TABLET BY 1 TABLET BY TAKE 1 MOUTH EVERY MOUTH EVERY TABLET BY DAY DAY MOUTH EVERY DAY valsartan valsartan No valsartan [facility] 80 mg 80 mg 80 mg Medical tablet TAKE tablet TAKE tablet 2 TABLETS 2 TABLETS TAKE 2 (160 MG) BY (160 MG) BY TABLETS MOUTH TWICE MOUTH TWICE (160 MG) A DAY A DAY BY MOUTH TWICE A DAY aspirin 81 aspirin 81 No aspirin 81 [facility] mg mg mg Medical atorvastati atorvastati No atorvastat [facility] n 10 mg n 10 mg in 10 mg Medic al tablet TAKE tablet TAKE tablet ONE TABLET ONE TABLET TAKE ONE BY MOUTH BY MOUTH TABLET BY THREE TIMES THREE TIMES MOUTH A WEEK A WEEK THREE TIMES A WEEK ciprofloxac ciprofloxac No 1 BID ciprofloxa [facility] in 250 mg in 250 mg shawn 250 mg Medical tablet Take tablet Take tablet 1 tablet 1 tablet Take 1 twice a day twice a day tablet by oral by oral twice a route as route as day by directed directed oral route for 7 days. for 7 days. as directed for 7 days. diltiazem diltiazem No diltiazem [facility] ER 120 mg ER 120 mg ER 120 mg Medical capsule,ext capsule,ext capsule,ex ended ended tended release 12 release 12 release 12 hr TAKE 1 hr TAKE 1 hr TAKE 1 CAPSULE BY CAPSULE BY CAPSULE BY MOUTH TWICE MOUTH TWICE MOUTH A DAY A DAY TWICE A DAY donepezil donepezil No donepezil [facility] 10 mg 10 mg 10 mg Medical tablet TAKE tablet TAKE tablet 1 TABLET BY 1 TABLET BY TAKE 1 MOUTH EVERY MOUTH EVERY TABLET BY DAY AT DAY AT MOUTH NIGHT NIGHT EVERY DAY AT NIGHT estradiol estradiol No estradiol [facility] 0.01% (0.1 0.01% (0.1 0.01% (0.1 Medical mg/gram) mg/gram) mg/gram) vaginal vaginal vaginal cream cream cream INSERT OR INSERT OR INSERT OR APPLY ONE APPLY ONE APPLY ONE GRAM TWICE GRAM TWICE GRAM TWICE WEEKLY WEEKLY WEEKLY VAGINALLY VAGINALLY VAGINALLY FOR FOR FOR DURATION OF DURATION OF DURATION USE USE OF USE ezetimibe ezetimibe No ezetimibe [facility] 10 mg 10 mg 10 mg Medical tablet TAKE tablet TAKE tablet 1 TABLET BY 1 TABLET BY TAKE 1 MOUTH EVERY MOUTH EVERY TABLET BY DAY DAY MOUTH EVERY DAY Imodium A-D Imodium A-D No Imodium [facility] 2 daily q 2 daily q A-D 2 Medi pavithra morning morning daily q morning Premarin Premarin No Premarin Arleen via 0.625 mg 0.625 mg 0.625 mg Med ical tablet TAKE tablet TAKE tablet 1 TABLET BY 1 TABLET BY TAKE 1 MOUTH EVERY MOUTH EVERY TABLET BY DAY DAY MOUTH EVERY DAY sertraline sertraline No sertraline [facility] 50 mg 50 mg 50 mg Medical tablet TAKE tablet TAKE tablet 2 TABLETS 2 TABLETS TAKE 2 BY MOUTH BY MOUTH TABLETS BY EVERY DAY EVERY DAY MOUTH EVERY DAY spironolact spironolact No spironolac [facility] one 25 mg one 25 mg tone 25 mg Medical tablet TAKE tablet TAKE tablet 1 TABLET BY 1 TABLET BY TAKE 1 MOUTH EVERY MOUTH EVERY TABLET BY DAY DAY MOUTH EVERY DAY Theracran Theracran No 1capsul BID Theracran [facility] 650 mg 650 mg e(s) 650 mg Medical capsule capsule capsule Take 1 Take 1 Take 1 capsule capsule capsule twice a day twice a day twice a by oral by oral day by route for route for oral route 90 days. 90 days. for 90 days. valsartan valsartan No valsartan [facility] 80 mg 80 mg 80 mg Medical tablet TAKE tablet TAKE tablet 2 TABLETS 2 TABLETS TAKE 2 (160 MG) BY (160 MG) BY TABLETS MOUTH TWICE MOUTH TWICE (160 MG) A DAY A DAY BY MOUTH TWICE A DAY Vitamin B12 Vitamin B12 No Vitamin [facility] B12 Medical Vitamin C Vitamin C No Vitamin C [facility] Vitamin D3 Vitamin D3 No Vitamin D3 [facility] 5000unit 5000unit 5000unit Med ical amoxicillin amoxicillin No amoxicilli [facility] [phone] [phone] Medical mg-potassiu mg-potassiu mg-potassi m m um clavulanate clavulanate clavulanat 125 mg 125 mg e 125 mg tablet TAKE tablet TAKE tablet 1 TABLET BY 1 TABLET BY TAKE 1 MOUTH EVERY MOUTH EVERY TABLET BY 12 HOURS 12 HOURS MOUTH FOR 10 DAYS FOR 10 DAYS EVERY 12 HOURS FOR 10 DAYS aspirin 81 aspirin 81 No aspirin 81 [facility] mg mg mg Medical atorvastati atorvastati No atorvastat [facility] n 10 mg n 10 mg in 10 mg Medic al tablet TAKE tablet TAKE tablet ONE TABLET ONE TABLET TAKE ONE BY MOUTH BY MOUTH TABLET BY THREE TIMES THREE TIMES MOUTH A WEEK A WEEK THREE TIMES A WEEK BinaxNOW BinaxNOW No BinaxNOW [facility] via COVID-19 Ag COVID-19 Ag COVID-19 Medical Self Test Self Test Ag Self kit REFER kit REFER Test kit TO TO REFER TO MANUFACTURE MANUFACTURE MANUFACTUR R R ER INSTRUCTION INSTRUCTION INSTRUCTIO S INCLUDED S INCLUDED NS IN IN INCLUDED PACKAGING PACKAGING IN PACKAGING ciprofloxac ciprofloxac No ciprofloxa [facility] in 250 mg in 250 mg shawn 250 mg Medical tablet TAKE tablet TAKE tablet 1 TABLET 1 TABLET TAKE 1 TWICE A DAY TWICE A DAY TABLET BY ORAL BY ORAL TWICE A ROUTE ROUTE DAY BY DIRECTED DIRECTED ORAL ROUTE FOR 7 DAYS. FOR 7 DAYS. DIRECTED FOR 7 DAYS. diclofenac diclofenac No diclofenac [facility] sodium 75 sodium 75 sodium 75 Medical mg mg mg tablet,rebecca tablet,rebecca tablet,del yed release yed release ayed TAKE 1 TAKE 1 release TABLET BY TABLET BY TAKE 1 MOUTH TWICE MOUTH TWICE TABLET BY DAILY DAILY MOUTH NEEDED NEEDED TWICE DAILY NEEDED diltiazem diltiazem No diltiazem [facility] ER 120 mg ER 120 mg ER 120 mg Medical capsule,ext capsule,ext capsule,ex ended ended tended release 12 release 12 release 12 hr TAKE 1 hr TAKE 1 hr TAKE 1 CAPSULE BY CAPSULE BY CAPSULE BY MOUTH TWICE MOUTH TWICE MOUTH A DAY A DAY TWICE A DAY donepezil donepezil No donepezil [facility] 10 mg 10 mg 10 mg Medical tablet TAKE tablet TAKE tablet 1 TABLET BY 1 TABLET BY TAKE 1 MOUTH EVERY MOUTH EVERY TABLET BY DAY AT DAY AT MOUTH NIGHT NIGHT EVERY DAY AT NIGHT estradiol estradiol No estradiol [facility] 0.01% (0.1 0.01% (0.1 0.01% (0.1 Medical mg/gram) mg/gram) mg/gram) vaginal vaginal vaginal cream cream cream INSERT OR INSERT OR INSERT OR APPLY ONE APPLY ONE APPLY ONE GRAM TWICE GRAM TWICE GRAM TWICE WEEKLY WEEKLY WEEKLY VAGINALLY VAGINALLY VAGINALLY FOR FOR FOR DURATION OF DURATION OF DURATION USE USE OF USE ezetimibe ezetimibe No ezetimibe [facility] 10 mg 10 mg 10 mg Medical tablet TAKE tablet TAKE tablet 1 TABLET BY 1 TABLET BY TAKE 1 MOUTH EVERY MOUTH EVERY TABLET BY DAY DAY MOUTH EVERY DAY gabapentin gabapentin No gabapentin [facility] 100 mg 100 mg 100 mg Medical capsule capsule capsule TAKE 1 TAKE 1 TAKE 1 CAPSULE BY CAPSULE BY CAPSULE BY MOUTH MOUTH MOUTH EVERYDAY AT EVERYDAY AT EVERYDAY BEDTIME BEDTIME AT BEDTIME Imodium A-D Imodium A-D No Imodium [facility] 2 daily q 2 daily q A-D 2 Medi pavithra morning morning daily q morning levofloxaci levofloxaci No levofloxac [facility] n 250 mg n 250 mg in 250 mg Me dical tablet TAKE tablet TAKE tablet 1 TABLET 1 TABLET TAKE 1 TWICE A DAY TWICE A DAY TABLET BY ORAL BY ORAL TWICE A ROUTE ROUTE DAY BY DIRECTED DIRECTED ORAL ROUTE FOR 5 DAYS. FOR 5 DAYS. DIRECTED FOR 5 DAYS. levothyroxi levothyroxi No levothyrox [facility] ne 25 mcg ne 25 mcg ine 25 mcg Medical tablet TAKE tablet TAKE tablet 1 TABLET BY 1 TABLET BY TAKE 1 MOUTH EVERY MOUTH EVERY TABLET BY DAY IN THE DAY IN THE MOUTH MORNING ON MORNING ON EVERY DAY EMPTY EMPTY IN THE STOMACH STOMACH MORNING ON EMPTY STOMACH Macrobid Macrobid No Macrobid Arleen via 100 mg 100 mg 100 mg Medical capsule capsule capsule Take 1 Take 1 Take 1 capsule bid capsule bid capsule x 7 days x 7 days bid x 7 days meclizine meclizine No meclizine [facility] 25 mg 25 mg 25 mg Medical tablet TAKE tablet TAKE tablet 1 TABLET BY 1 TABLET BY TAKE 1 MOUTH THREE MOUTH THREE TABLET BY TIMES A DAY TIMES A DAY MOUTH NEEDED NEEDED THREE TIMES A DAY NEEDED metoclopram metoclopram No metoclopra [facility] ijeoma 10 mg ijeoma 10 mg mide 10 mg Medical tablet TAKE tablet TAKE tablet 3 TABLETS 3 TABLETS TAKE 3 BY MOUTH BY MOUTH TABLETS BY DIRECTED DIRECTED MOUTH USE USE DIRECTED DIRECTED DIRECTED USE PER YOUR PER YOUR DIRECTED COLONOSCOPY COLONOSCOPY PER YOUR PREP PACKET PREP PACKET COLONOSCOP Y PREP PACKET montelukast montelukast No montelukas [facility] 10 mg 10 mg t 10 mg Medical tablet TAKE tablet TAKE tablet 1 TABLET BY 1 TABLET BY TAKE 1 MOUTH EVERY MOUTH EVERY TABLET BY DAY DAY MOUTH EVERY DAY neomycin-po neomycin-po No neomycin-p [facility] lymyxin-hyd lymyxin-hyd olymyxin-h Medical rocort 3.5 rocort 3.5 ydrocort mg-10,000 mg-10,000 3.5 unit/mL-1 % unit/mL-1 % mg-10,000 ear ear unit/mL-1 drops,susp drops,susp % ear INSTILL 4 INSTILL 4 drops,susp DROPS INTO DROPS INTO INSTILL 4 AFFECTED AFFECTED DROPS INTO EAR 3 TIMES EAR 3 TIMES AFFECTED A DAY A DAY EAR 3 TIMES A DAY omeprazole omeprazole No omeprazole [facility] 20 mg 20 mg 20 mg Medical capsule,del capsule,del capsule,de ayed ayed layed release release release TAKE 1 TAKE 1 TAKE 1 CAPSULE BY CAPSULE BY CAPSULE BY MOUTH IN MOUTH IN MOUTH IN THE MORNING THE MORNING THE MORNING Premarin Premarin No Premarin Arleen via 0.625 mg 0.625 mg 0.625 mg Med ical tablet TAKE tablet TAKE tablet 1 TABLET BY 1 TABLET BY TAKE 1 MOUTH EVERY MOUTH EVERY TABLET BY DAY DAY MOUTH EVERY DAY Premarin Premarin No Premarin Arleen via 0.625 0.625 0.625 Medical mg/gram mg/gram mg/gram vaginal vaginal vaginal cream cream cream INSERT 1 INSERT 1 INSERT 1 GRAM GRAM GRAM VAGINALLY VAGINALLY VAGINALLY TWICE TWICE TWICE WEEKLY WEEKLY WEEKLY DIRECTED DIRECTED DIRECTED sertraline sertraline No sertraline [facility] 50 mg 50 mg 50 mg Medical tablet TAKE tablet TAKE tablet 2 TABLETS 2 TABLETS TAKE 2 BY MOUTH BY MOUTH TABLETS BY EVERY DAY EVERY DAY MOUTH EVERY DAY spironolact spironolact No spironolac [facility] one 25 mg one 25 mg tone 25 mg Medical tablet TAKE tablet TAKE tablet 1 TABLET BY 1 TABLET BY TAKE 1 MOUTH EVERY MOUTH EVERY TABLET BY DAY DAY MOUTH EVERY DAY Sutab Sutab No Sutab [facility] 1.479-0.188 1.479-0.188 1.479-0.18 Medical -0.225 gram -0.225 gram 8-0.225 tablet tablet gram PLEASE SEE PLEASE SEE tablet ATTACHED ATTACHED PLEASE SEE FOR FOR ATTACHED DETAILED DETAILED FOR DIRECTIONS DIRECTIONS DETAILED DIRECTIONS Theracran Theracran No 1capsul BID Theracran [facility] 650 mg 650 mg e(s) 650 mg Medical capsule capsule capsule Take 1 Take 1 Take 1 capsule capsule capsule twice a day twice a day twice a by oral by oral day by route for route for oral route 90 days. 90 days. for 90 days. tramadol 50 tramadol 50 No tramadol [facility] mg tablet mg tablet 50 mg Medi pavithra TAKE ONE TAKE ONE tablet TABLET BY TABLET BY TAKE ONE MOUTH TWICE MOUTH TWICE TABLET BY A DAY A DAY MOUTH NEEDED FOR NEEDED FOR TWICE A JOINT PAIN, JOINT PAIN, DAY ICD - ICD - NEEDED FOR M19.90 M19.90 JOINT PAIN, ICD - M19.90 valsartan valsartan No valsartan [facility] 80 mg 80 mg 80 mg Medical tablet TAKE tablet TAKE tablet 2 TABLETS 2 TABLETS TAKE 2 (160 MG) BY (160 MG) BY TABLETS MOUTH TWICE MOUTH TWICE (160 MG) A DAY A DAY BY MOUTH TWICE A DAY Vitamin B12 Vitamin B12 No Vitamin [facility] B12 Medical Vitamin C Vitamin C No Vitamin C [facility] Vitamin D3 Vitamin D3 No Vitamin D3 [facility] 5000unit 5000unit 5000unit Med ical Immunizations Ordered Immunization Filled Immunization Date Status Commen ts Source Name Name [facility] MRNA Unknown Completed [facility] COVID-19 MRNA Unknown Completed [facility] Vital Signs Vital Name Observation Time Observation Value Comments Source BP Diastolic 2022-09-29 00:00:00 93 mm[Hg] [facility] BP Systolic 2022-09-29 00:00:00 150 mm[Hg] [facility] Body Weight 2022-09-29 00:00:00 120 [lb_av] [facility] BP Diastolic 2022-09-07 00:00:00 65 mm[Hg] [facility] BP Systolic 2022-09-07 00:00:00 145 mm[Hg] [facility] BP Diastolic 2022-07-31 00:00:00 70 mm[Hg] [facility] BP Systolic 2022-07-31 00:00:00 162 mm[Hg] [facility] BP Diastolic 2022-07-03 00:00:00 76 mm[Hg] [facility] BP Systolic 2022-07-03 00:00:00 174 mm[Hg] [facility] Body Weight 2022-07-03 00:00:00 120 [lb_av] [facility] BP Diastolic 2022-06-03 00:00:00 66 mm[Hg] [facility] BP Systolic 2022-06-03 00:00:00 139 mm[Hg] [facility] Body Weight 2022-06-03 00:00:00 120 [lb_av] [facility] BP Diastolic 2022-04-16 00:00:00 84 mm[Hg] [facility] BMI (Body Mass 2022-04-16 00:00:00 101 kg/m2 [facility] Index) BP Systolic 2022-04-16 00:00:00 143 mm[Hg] [facility] BP Diastolic 2022-03-27 00:00:00 62 mm[Hg] [facility] BP Systolic 2022-03-27 00:00:00 135 mm[Hg] [facility] Body Weight 2022-03-27 00:00:00 122 [lb_av] [facility] BP Diastolic 2020-10-07 00:00:00 60 mm[Hg] [facility] Height 2020-10-07 00:00:00 64 [in_i] [facility] BMI (Body Mass 2020-10-07 00:00:00 24.4 [facility]/m2 [facility] BP Systolic 2020-10-07 00:00:00 151 mm[Hg] [facility] Body Weight 2020-10-07 00:00:00 142 [lb_av] [facility] Systolic blood 2022-06-03 21:08:00 145 mm[Hg] [facility] pressure Diastolic blood 2022-06-03 21:08:00 63 mm[Hg] [facility] pressure Heart rate 2022-06-03 21:08:00 68 /min [facility] Body height 2022-06-03 21:08:00 157.5 cm [facility] Body weight 2022-06-03 21:08:00 54.432 kg [facility] BMI 2022-06-03 21:08:00 21.95 kg/m2 [facility] Procedures Procedure Date / Time Performing Clinician Source Performed Incontinence Procedure: 2022-09-07 00:00:00 [facility] Botox ECG 12-LEAD 2022-06-03 22:14:37 [facility] Susanna COMPREHENSIVE METABOLIC 2022-06-03 22:03:00 [facility] PANEL Susanna LIPID PANEL 2022-06-03 22:03:00 [facility] Susanna CBC WITH PLATELET AND 2022-06-03 22:03:00 [facility] DIFFERENTIAL Susanna THYROID STIMULATING 2022-06-03 22:03:00 [facility] HORMONE Susanna HEMOGLOBIN A1C 2022-06-03 22:03:00 [facility] Susanna SCREENING MAMMOGRAPHY 2022-06-03 00:00:00 [facility] BOTH BREASTS INCLUDING COMPUTER AIDED DETECTION Incontinence Procedure: 2020-06-12 00:00:00 [facility] Incontinence Procedure: 2019-08-09 00:00:00 [facility] Incontinence Procedure: 2019-01-18 00:00:00 [facility] Plan of Care Planned Activity Planned Date Details Comments Source Future Scheduled 2023-04-12 COVID-19 VACCINE ([facility] 09[facility]31:55 season) [code = COVID-19 VACCINE (3 - season)] Future Scheduled 2023-04-12 [facility]EN[facility]ACCINE [facility] 09:31:55 (#1) [code = INFLUENZA VACCINE (#1)] Future Scheduled 2023-04-12 65+ [facility]UMOCOCCAL [facility] Test 09:31:55 VACCINE (1 - PCV) [code = 65+ PNEUMOCOCCAL VACCINE (1 - PCV)] Future Scheduled 2023-04-12 Hepatitis C screening [facility] Test 09:31:55 (procedure) [code = 564023972] Future Scheduled 2023-04-12 SHINGLES VACCINES (1 Met [facility] Test 09:31:55 of 2) [code = SHINGLES VACCINES (1 of 2)] Diagnostic Test 2022-09-29 culture, urine [code [facility] Pending 00:00:00 = culture, urine] Diagnostic Test 2022-09-29 urinalysis, complete [facility] Pending 00:00:00 [code = urinalysis, complete] Encounters Start End Encounter Admission Attending Care Care Encounter Source Date/Time Date/Time Type Type Clinicians Facility Department ID 2023-04-12 2023-04-12 Dave Bearden, 1.2.840.1 [id number] [facility] 00:00:00 00:00:[address] 3.430.2.7 Hospit a .3.358578 l .8 2023-01-25 2023-01-25 Refill Devaughnwaabilio 1.2.840.1 [id number] [facility] 00:00:00 00:00:00 , Amalia [address]2941.1.[address] Susanna 3.430.2.7 Hospit a .3.156357 l .8 2023-01-14 2023-01-14 Outpatient _[facility] PRIV PRIV 501 [id number] [facility] 00:00:00 00:00:00 _Neelima [id number] Medica l 2023-01-12 2023-01-12 Outpatient [facility] PRIV PRIV 501 [id number] [facility] 00:00:00 00:00:00 _Cathey [id number] Medica l 2023-01-11 2023-01-11 Outpatient [facility] PRIV PRIV 501 [id number] [facility] 00:00:00 00:00:00 _Cathey [id number] Medica l 2022-12-24 2022-12-24 Outpatient [facility] PRIV PRIV 501 [id number] [facility] 00:00:00 00:00:00 _Cathey [id number] Medica l 2022-12-24 2022-12-24 Outpatient [facility] PRIV PRIV 501 [id number] [facility] 00:00:00 00:00:00 _Cathey [id number] Medica l 2022-12-23 2022-12-23 Outpatient [facility] PRIV PRIV 501 [id number] [facility] 00:00:00 00:00:00 _Cathey [id number] Medica l 2022-11-24 2022-11-24 Refill Yun 1.2.840.1 [id number] [facility] 00:00:00 00:00:00 , Amalia 43970.1.[address] Susanna 3.430.2.7 Hospit a .3.053255 l .8 2022-11-11 2022-11-11 Outpatient [facility] PRIV PRIV 501 [id number] [facility] 00:00:00 00:00:00 _Cathey [id number] Medica l 2022-11-11 2022-11-11 Outpatient [facility] PRIV PRIV 501 [id number] [facility] 00:00:00 00:00:00 _Cathey [id number] Medica l 2022-11-05 2022-11-05 Outpatient [facility] PRIV PRIV 501 [id number] [facility] 00:00:00 00:00:00 _Cathey [id number] Medica l 2022-10-30 2022-10-30 Refill Hipolito Burgos 1.2.840.1 [id number] [facility] 00:00:00 00:00:[address] Mary Anne [address]1.[address] 3.430.2.7 Hospit a .3.605177 l .8 2022-10-23 2022-10-23 Outpatient [facility] PRIV PRIV 501 [id number] [facility] 00:00:00 00:00:00 _Cathey [id number] Medica l 2022-10-09 2022-10-09 Outpatient [facility] PR[facility] PRIV 501 [id number] [facility] 00:00:00 00:00:00 _Cathey_G [id number] Medi pavithra 2022-09-29 2022-09-29 Outpatient [facility] PRIV PRIV 501 [id number] [facility] 00:00:00 00:00:00 _Cathey [id number] Medica l 2022-09-29 2022-09-29 Outpatient [facility] PR[facility] PRIV 501 [id number] [facility] 00:00:00 00:00:00 _Cathey [id number] Medica l 2022-09-29 2022-09-29 [facility] 00:00:00 00:00:00 DEBI Sands: [facility] - Ar dical [address] [facility] Zachariah [address] [place] [address] , Ph. [phone] 2022-09-28 2022-09-28 Outpatient [facility] PRIV PRIV 501 [id number] [facility] 00:00:00 00:00:00 _Cathey [id number] Medica l 2022-09-07 2022-09-07 Outpatient [facility] PRIV PRIV 501 [id number] [facility] 00:00:00 00:00:00 _Cathey [id number] Medica l 2022-09-07 2022-09-07 Outpatient [facility] PRIV PRIV 501 [id number] [facility] 00:00:00 00:00:00 _Cathey [id number] Medica l 2022-09-07 2022-09-07 Rina [facility] 10 [facility] 00:00:00 00:00:00 [facility] Neelima, [facility] MD: [id number], Office* [address], [place] [address] , Ph. [phone] 2022-08-13 2022-08-13 Outpatient [facility] PRIV PRIV 501 [id number] [facility] 00:00:00 00:00:00 _Cathey [id number] Medica l 2022-07-31 2022-07-31 [facility] 501 [id number] [facility] 00:00:00 00:00:00 _Cathey [id number] Medica l 2022-07-31 2022-07-31 Outpatient [facility] PRIV PRIV 501 [id number] [facility] 00:00:00 00:00:00 _Cathey [id number] Medica l 2022-07-31 2022-07-31 Lud[facility] 00:00:00 00:00:00 DEBI Sands: [facility] padmini [id number] [facility] Zachariah, _[address], [place] [address] , Ph. [phone] 2022-07-28 2022-07-28 Outpatient [facility] PRIV PRIV 501 [id number] [facility] 00:00:00 00:00:00 _Cathey [id number] Medica l 2022-07-28 2022-07-28 Outpatient [facility] PRIV PRIV 501 [id number] [facility] 00:00:00 00:00:00 _Cathey [id number] Medica l 2022-07-24 2022-07-24 Refill Hipolito Burgos 1.2.840.1 [id number] [facility] 00:00:00 00:00:[address] Mary Anne [address] 3.430.2.7 Hospit a .3.976504 l .8 2022-07-23 2022-07-23 Refill Devaughnmeabilio 1.2.840.1 [id number] [facility] 00:00:00 00:00:00 , Amalia [address]661.1.[address] [place] 3.430.2.7 Hospit a .3.896887 l .8 2022-07-03 2022-07-03 Outpatient [facility] PRIV PRIV 501 [id number] [facility] 00:00:00 00:00:00 _Cathey [id number] Medica l 2022-07-03 2022-07-03 Ludy [facility] [id number] [facility] 00:00:00 00:00:00 DEBI Sands: [facility] padmini [address] [facility] _[address], [place] [address] , Ph. [phone] 2022-06-29 2022-06-29 Outpatient [facility] PRIV [facility] [id number] [facility] 00:00:00 00:00:00 _Neelima [id number] Medica l 2022-06-21 2022-06-21 Refill Hipolito Burgos 1.2.840.1 [id number] [facility] 00:00:00 00:00:[address] 3.430.2.7 Hospit a .3.994987 l .8 2022-06-03 2022-06-03 Office Yun 1.2.840.1 [id number] [facility] 15:00:00 16:11:45 Visit , Amalia 36593.1.[address] [place]anna 3.430.2.7 Hospit a .3.580587 l .8 2022-06-03 2022-06-03 Outpatient _[facility] PRIV [facility] [id number] [facility] 00:00:00 00:00:00 _Neelima [id number] Medica l 2022-06-03 2022-06-03 Outpatient [facility] PRIV [facility] [id number] [facility] 00:00:00 00:00:00 _Neelima [id number] Medica l 2022-06-03 2022-06-03 Rina [facility] [id number] [facility] 00:00:00 00:00:00 [facility] DANETTE Orantes : [id number], Office* [address], [place] [address] , Ph. [phone] 2022-06-03 2022-06-03 Travel 1.2.840.1 [id number] [facility] 00:00:00 00:00:00 [id number] 350.1.13.43 636 3.430.2.7 0.2.7.3.698 Ho spita .3.626503 084.8 l .8 2022-06-03 2022-06-03 Outpatient YUN [facility] [id number] [place] 00:00:00 00:00:00 , AMALIA [facility] 2022-06-02 2022-06-02 Outpatient [facility] PRIV PRIV 501 [id number] [facility] 00:00:00 00:00:00 _Cathey [id number] Medica l 2022-04-16 2022-04-16 Outpatient [facility] PRIV PRIV 501 [id number] [facility] 00:00:00 00:00:00 _Cathey [id number] Medica l 2022-04-16 2022-04-16 [facility] [id number] [facility] 00:00:00 00:00:00 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 [phone] 2022-03-25 2022-03-25 Outpatient [facility] PRIV PRIV [id number] [facility] 00:00:00 00:00:00 _Cathey [id number] Medica l 2021-11-12 2021-11-12 Outpatient YUN [facility] [id number] [place] 00:00:00 00:00:00 , AMALIA [address] 2021-10-15 2021-10-15 Outpatient Lisse_S VFP VFP [id number] -20 [facility] 10:38:00 10:38:00 [id number] Family Practic e 2021-10-01 2021-10-01 Outpatient Lisse_S VFP VFP [id number] -20 [facility] 11:28:00 11:28:00 [id number] Family Practic e 2021-07-02 2021-07-02 Outpatient HIPOLITO BURGOS [facility] [id number] [place] 00:00:00 00:00:[address] 2021-04-30 2021-04-30 Outpatient YUN [facility] [id number] [place] 00:00:00 00:00:00 , AMALIA 65[facility] 2021-03-27 2021-03-27 Outpatient [facility] PRIV PRIV 501 [id number] [facility] 00:00:00 00:00:00 _Cathey [id number] Medica l 2020-12-26 2020-12-26 Outpatient HIPOLITO BURGOS [facility] [id number] [place] 00:00:00 00:00:[address] 2020-10-25 2020-10-25 Outpatient YUN [facility] [id number] [place] 00:00:00 00:00:00 , AMALIA [address] 2020-10-08 2020-10-08 Outpatient [facility] PRIV PRIV 501 [id number] [facility] 02:54:00 02:54:00 _Cathey [id number] Medica l 2020-10-07 2020-10-07 Outpatient [facility] PRIV PRIV 501 [id number] [facility] 04:14:00 04:14:00 _Cathey [id number] Medica l 2020-10-07 2020-10-07 Rina [facility] 10 [facility] 00:00:00 00:00:00 [facility] al Neeliam, _S[facility]C MD: [address], Office* [address], [place] [address] , Ph. [phone] 2020-10-07 2020-10-07 Outpatient Neelima, PRIV PRIV [id number] 00:00:00 00:00:00 Rina [id number] Mary [id number] 2020-10-03 2020-10-03 Outpatient _[facility] PRIV PRIV 501 [id number] [facility] 11:24:00 11:24:00 _Neelima [id number] Medica l 2020-07-09 2020-07-09 Outpatient KURRELMEYER [facility] [id number] [place] 00:00:00 00:00:00 , AMALIA [address] 2020-06-28 2020-06-28 [facility] [id number] [place] 00:00:00 00:00:00 , AMALIA [address] 2020-06-28 2020-06-28 [facility] [id number] [place] 00:00:00 00:00:00 , AMALIA [address] 2020-06-27 2020-06-27 Outpatient BARROS, [facility] [id number] [place] 00:00:00 00:00:00 BEKAH [address] 2020-06-27 2020-06-27 Outpatient BURGOS, [facility] 903 [id number] [place] 00:00:00 00:00:[address] 2020-06-08 2020-06-10 Outpatient [facility] [id number] [place] 00:00:00 00:00:[address] 2020-05-30 2020-05-30 Outpatient BURGOS, [facility] [id number] [place] 00:00:00 00:00:[address] 2020-05-03 2020-05-03 Outpatient KURRELNJABILIO [facility] [id number] [place] 00:00:00 00:00:00 , AMALIA [address] 2020-04-17 2020-04-17 Outpatient BURGOS, HIPOLITO [facility] [id number] [place] 00:00:00 00:00:[address] 2020-04-10 2020-04-10 Outpatient KURRELMEYER [facility] [id number] [place] 00:00:00 00:00:00 , AMALIA [address] 2020-04-10 2020-04-10 Outpatient [facility] [id number] [place] 00:00:00 00:00:[address] 2019-12-27 2019-12-28 Outpatient KURRELMEYER [facility] [id number] [place] 00:00:00 00:00:00 , AMALIA [address] 2019-12-18 2019-12-18 Outpatient BURGOS, HIPOLITO [facility] [id number] [place] 00:00:00 00:00:[address] 2019-09-15 2019-09-15 Outpatient ERGUN, [facility] [id number] [place] 00:00:00 00:00:00 GULCHIN 855 Method i 2019-06-14 2019-06-14 Outpatient ERGUN, [facility] [id number] [place] 00:00:00 00:00:00 GULCHIN [address] 2019-04-11 2019-04-11 Outpatient ERGUN, [facility] [id number] [place] 00:00:00 00:00:00 GULCHIN [address] Results Test Description Test Time Test Comments Results Result Comments Source Bacteria identified in Urine by Culture 2022-09-09 00:00:00 Test Item Value Reference Range Interpretation Comme nts Bacteria identified in Urine by Culture (test code = 630-4) no g rowth no growth [facility] Medical[facility]inalysis complete panel - [id number] 00:00:00 Test Item Value Reference Range Interpretation Comments Specific gravity of Urine (test 1.021 1.003-1.030 code = 2965-2) pH of Urine (test code = 2756-5) 5.0 5.0-8.0 Protein [Presence] in Urine by negative negative Test strip (test code = 67666-6) Glucose [Presence] in Urine by negative negative Test strip (test code = 17963-7) Ketones [Presence] in Urine by negative negative Test strip (test code = 2514-8) Urobilinogen [Units/volume] in 0.2 mg/dL 0.2-1.0 Urine by Test strip (test code = 57046-8) Bilirubin.total [Presence] in negative negative Urine by Test strip (test code = 5770-3) Hemoglobin [Presence] in Urine by negative negative Test strip (test code = 5794-3) Nitrite [Presence] in Urine by negative negative Test strip (test code = 5802-4) Crystals [Presence] in Urine by none none Automated (test code = 33223-5) Leukocytes [Presence] in Urine by 0-5 0-5 Automated (test code = 50277-5) Erythrocytes [Presence] in Urine 0-2 0-2 by Automated (test code = 61271-4) RBC casts [Presence] in Urine by not present not present Computer assisted method (test code = 75495-0) Hyaline casts [Presence] in Urine not present not present by Automated (test code = 21435-8) Epithelial cells [#/area] in none none-few Urine sediment by Automated count (test code = 72334-1) Granular casts [Presence] in not present not present Urine by Computer assisted method (test code = 59824-4) Bacteria [#/area] in Urine none none-few sediment by Automated count (test code = 12030-3) Leukocyte esterase [Presence] in negative negative Urine by Test strip (test code = 5799-2) Color of Urine (test code = yellow yellow 5778-6) Character of Urine (test code = turbid clear A 91239-9) [facility] Medical[facility]acteria identified in Urine by [id number] 00:00:00 Test Item Value Reference Range Interpretation Comments Bacteria identified in Urine by no growth no growth Culture (test code = 630-4) [facility] MedicalComprehensive metabolic [id number] 05:42:00 Test Item Value Reference Interpretation Comments Range Glucose (test code 100 mg/dL 65-99 H Fasting reference = 2345-7) interval For so meone without known diabetes, a glu cose valuebetween 10 0 and 125 mg/dL is consistent withprediabetes and should be confi rmed with afollow-up test. BUN (test code = 21 mg/dL 7-25 3094-0) Creatinine (test 0.71 mg/dL 0.60-1.00 code = 2160-0) eGFR (test code = 86 See_Comment [place] [address]-7) the CKD-EPI 202 1 equation. To calculate the n ew eGFR from a pre vious Creatinine or Cystatin Cresul t, go to https://www.kid yoni.o rg/professional s/kdo qi/gfr%5Fcalcul ator [Automated mess age] The system [employer] generated this result transmit kwasi reference range : > OR = 60 mL/min/1.73m2. The reference range was not used to interpret this result as normal/abnormal . BUN/creatinine NOT APPLICABLE See_Comment [Automated message] ratio (test code = The [employer] which 3097-3) generated this result transmit kwasi reference range : 6 - 22 (calc). The reference range was not used to interpret this result as normal/abnormal . Sodium (test code = 137 mmol/L 413-250 6782-2) Potassium (test 4.4 mmol/L 3.5-5.3 code = 2823-3) Chloride (test code 101 mmol/L 98-110 = 2075-0) CO2 (test code = 31 mmol/L 20-32 2027-9) Calcium (test code 9.5 mg/dL 8.6-10.4 = 94885-4) Protein (test code 6.6 g/dL 6.1-8.1 = 2885-2) Albumin, S (test 4.2 g/dL 3.6-5.1 code = 1751-7) Globulin, total 2.4 See_Comment [Automated message] (test code = The system [employer] 43958-8) generated this result transmit kwasi reference range : 1.9 - 3.7 g/dL (pavithra c). The reference r suleiman was not used to interpret this result as normal/abnormal . Albumin/globulin 1.8 See_Comment [Automated message] ratio (test code = The [employer] which 1759-0) generated this result transmit kwasi reference range : 1.0 - 2.5 (calc). T he reference range was not used to interpret this result as normal/abnormal . Total bilirubin 0.6 mg/dL 0.2-1.2 (test code = 1975-2) Alkaline 68 U/L 37-153 phosphatase (test code = 6768-6) AST (test code = 19 U/L 10-35 1920-8) ALT (test code = 13 U/L 11-26 1742-6) DONIS (test code = FASTING:UNKNOWN DONIS) FASTING: UNKNOWN RAC (test code = Performing RAC) Organization Information: Site ID: [facility]GA Name: [facility] Address: [address] [place] [phone] Director: Bekah Childress Lab Interpretation Abnormal (test code = 60485-9) [facility] [id number] 05:42:00 Test Item Value Reference Range Interpretation Comments Cholesterol, total 190 mg/dL <=200 (test code = 2093-3) HDL cholesterol 79 mg/dL See_Comment [Automated (test code = 2084-) message ] The system which generated this result transmitted reference range : > OR = 50. The reference range was not used to interpret this result as normal/abnormal . Triglycerides (test 139 mg/dL <=150 code = 2571-8) LDL cholesterol 87 mg/dL (calc) Reference ra nge: calculated (test <100 Desira ble code = 22438-7) range <100 m g/dL for primary prevention; <70 mg/dL for patients with C HD or diabetic patients with > or = 2 CHD risk factors. LDL-C is now calculated using the Eddie-Mitzy calculation, which is a validated novel method providin g better accuracy than the Friedewald equation in the estimation of LDL-C. Eddie S S et al. KAYCE. 2013;310(19): 8473-5011 (http://educati on .[employer] Seraphim .com/faq/PKN554 ) Cholesterol/HDL 2.4 See_Comment [Automated ratio (test code = message] The 9830-1) system which generated this result transmitted reference range : <5.0 (calc). Th e reference range was not used to interpret this result as normal/abnormal . Non-HDL cholesterol 111 See_Comment For tony ents with (test code = diabetes plus 1 26779-0) major ASCVD ris k factor, treatin g to a non-HDL-C goal of <100 mg/dL (LDL-C of <70 mg/dL) is considered a therapeutic option. [Automated message] The system which generated this result transmitted reference range : <130 mg/dL (calc). The reference range was not used to interpret this result as normal/abnormal . DONIS (test code = FASTING:UNKNOWN DONIS) FASTING: UNKNOWN RAC (test code = Performing RAC) Organization Information: Site ID: [facility]AD[facility] Name: [facility] Address: [address] [place], [place] [address] Director: Kennedy Meet [facility] [id number] 05:42:00 Test Item Value Reference Range Interpretation Comments Hemoglobin A1C 5.4 See_Comment For the purpo se of (test code = screening for t he 4548-4) presence ofdiab etes: <5.7% Consisten t with the absence of diabetes5.7-6.4 % Consistent with increased risk for diabetes (prediabetes)> or =6.5% Consisten t with diabetes This a ssay result is consi stent with a decrease d riskof diabetes . Currently, no consensus exist s regarding use ofhemoglobin A1 c for diagnosis of di abetes in children. According to [place] Diabetes Associ ation (ADA)guidelines , hemoglobin A1c <7.0% represents optimalcontrol in non- di abetic patients. Differentmetric s may apply to specif ic patient populat ions. Standards of Ar dical Care in Diabetes(ADA). [Automated mess age] The system [employer] generated this result transmitted ref erence range: <5.7 % o f total Hgb. The reference range was not used to int erpret this result as normal/abnormal . DONIS (test code = FASTING:UNKNOWN DONIS) FASTING: UNKNOWN RAC (test code = Performing RAC) Organization Information: Site ID: [facility]: [facility] Address: [address] [place] [phone] Director: Bekah Dsouza [facility] stimulating [id number] 05:42:00 Test Item Value Reference Range Interpretation Comments TSH (test 1.70 See_Comment [Automated mes arthur] code = The system [employer] 3016-3) generated this result transmit kwasi reference range : 0.40 - 4.50 mIU /L. The reference r suleiman was not used to interpret this result as normal/abnormal . DONIS (test FASTING:UNKNOWN code = DONIS) FASTING: UNKNOWN RAC (test Performing code = RAC) Organization Information: Site ID: RGA Name: [facility] Address: [address] [place] [id number] Director: Bekah Childress [facility] with platelet and [id number] 05:42:00 Test Item Value Reference Range Interpretation Comments WBC (test code = 5.0 See_Comment [Automated 6590-2) message] The system which generated this result transmitted reference range : 3.8 - 10.8 Thousand/uL. Th e reference range was not used to interpret this result as normal/abnormal . RBC (test code = 4.58 See_Comment [Automated 039-8) message] The system which generated this result transmitted reference range : 3.80 - 5.10 Million/uL. The reference range was not used to interpret this result as normal/abnormal . HGB (test code = 13.8 g/dL 11.7-15.5 718-7) HCT (test code = 40.1 % 35.0-45.0 4544-3) MCV (test code = 87.6 fL 80.0-100.0 787-2) MCH (test code = 30.1 pg 27.0-33.0 785-6) MCHC (test code = 34.4 g/dL 32.0-36.0 786-4) RDW (test code = 12.5 % 11.0-15.0 788-0) Platelet count 231 See_Comment [Automated (test code = message] The 777-3) system which generated this result transmitted reference range : 140 - 400 Thousand/uL. Th e reference range was not used to interpret this result as normal/abnormal . MPV (test code = 10.1 fL 7.5-12.5 776-5) Neutrophils, 3345 See_Comment [Automated absolute (test message] The code = 751-8) system which generated this result transmitted reference range : 1,500 - 7,800 cells/uL. The reference range was not used to interpret this result as normal/abnormal . Lymphocytes, 960 See_Comment [Automated absolute (test message] The code = 731-0) system which generated this result transmitted reference range : 850 - 3,900 cells/uL. The reference range was not used to interpret this result as normal/abnormal . Monocytes, 555 See_Comment [Automated absolute (test message] The code = 742-7) system which generated this result transmitted reference range : 200 - 950 cells/uL. The reference range was not used to interpret this result as normal/abnormal . Eosinophils, 100 See_Comment [Automated absolute (test message] The code = 711-2) system which generated this result transmitted reference range : 15 - 500 cells/uL. The reference range was not used to interpret this result as normal/abnormal . Basophils, 40 See_Comment [Automated absolute (test message] The code = 704-7) system which generated this result transmitted reference range : 0 - 200 cells/u L. The reference range was not used to interpr et this result as normal/abnormal . Neutrophils (test 66.9 % code = 770-8) Lymphocytes (test 19.2 % code = 736-9) Monocytes (test 11.1 % code = 5905-5) Eosinophils (test 2.0 % code = 713-8) Basophils + RC 0.8 % (test code = 706-2) DONIS (test code = FASTING:UNKNOWN DONIS) FASTING: UNKNOWN RAC (test code = Performing RAC) Organization Information: Site ID: [facility]GA Name: [facility] Address: [address] [place] [address] Director: Bekah Ott [facility] 12 [id number] 03:14:26 Test Item Value Reference Range Interpretation Comments Ventricular rate (test 62 code = 253) Atrial rate (test code 62 = 255) MA interval (test code 178 = 266) QRSD interval (test 74 code = 260) QT interval (test code 410 = 264) QTC interval (test code 416 = 265) P axis 1 (test code = 60 267) QRS axis 1 (test code = -29 268) T wave axis (test code 62 = 270) EKG impression (test Poor data code = 273) quality-Normal sinus rhythm with sinus arrhythmia-Low voltage QRS-Cannot rule out Anterior infarct (cited on or before 03-JUN-2022)-Abnormal ECG-In automated comparison with ECG of 12-NOV-2021 13:39,-Questionable change in initial forces of Anterior leads- [facility] complete panel - [id number] 00:00:00 Test Item Value Reference Range Interpretation Comments Specific gravity of Urine 1.022 1.003-1.030 (test code = 2965-2) pH of Urine (test code = 5.5 5.0-8.0 2756-5) Protein [Presence] in Urine by negative negative Test strip (test code = 89081-6) Glucose [Presence] in Urine by negative negative Test strip (test code = 11734-7) Ketones [Presence] in Urine by trace negative A Test strip (test code = 2514-8) Urobilinogen [Units/volume] in 0.2 mg/dL 0.2-1.0 Urine by Test strip (test code = 44587-7) Bilirubin.total [Presence] in negative negative Urine by Test strip (test code = 5770-3) Hemoglobin [Presence] in Urine negative negative by Test strip (test code = 5794-3) Nitrite [Presence] in Urine by negative negative Test strip (test code = 5802-4) Crystals [Presence] in Urine none none by Automated (test code = 43944-1) Leukocytes [Presence] in Urine 0-4 0-4 by Automated (test code = 67196-4) Erythrocytes [Presence] in none seen none seen Urine by Automated (test code = 02048-9) RBC casts [Presence] in Urine none seen 0-1 by Computer assisted method (test code = 66415-3) Hyaline casts [Presence] in 0-4 0-4 Urine by Automated (test code = 23848-7) Epithelial cells [#/area] in none none-few Urine sediment by Automated count (test code = 01193-7) Granular casts [Presence] in none seen 0-1 Urine by Computer assisted method (test code = 42912-5) Bacteria [#/area] in Urine none none-few sediment by Automated count (test code = 11670-6) Leukocyte esterase [Presence] negative negative in Urine by Test strip (test code = 5799-2) Color of Urine (test code = yellow yellow, straw, chano 5778-6) Character of Urine (test code clear clear = 70411-7) [facility] Medical[facility] identified in Urine by [id number] 00:00:00 Test Item Value Reference Range Interpretation Comments Bacteria identified in Urine by see below no growth A Culture (test code = 630-4) [facility] MedicalUrinalysis complete panel - [id number] 00:00:00 Test Item Value Reference Range Interpretation Comments Specific gravity of Urine 1.016 1.003-1.030 (test code = 2965-2) pH of Urine (test code = 5.5 5.0-8.0 2756-5) Protein [Presence] in Urine by negative negative Test strip (test code = 50053-3) Glucose [Presence] in Urine by negative negative Test strip (test code = 91610-4) Ketones [Presence] in Urine by negative negative Test strip (test code = 2514-8) Urobilinogen [Units/volume] in 0.2 mg/dL 0.2-1.0 Urine by Test strip (test code = 47595-5) Bilirubin.total [Presence] in negative negative Urine by Test strip (test code = 5770-3) Hemoglobin [Presence] in Urine trace negative A by Test strip (test code = 5794-3) Nitrite [Presence] in Urine by negative negative Test strip (test code = 5802-4) Crystals [Presence] in Urine none none by Automated (test code = 86550-3) Leukocytes [Presence] in Urine >100 0-4 H by Automated (test code = 39550-3) Erythrocytes [Presence] in 11-20 none seen H Urine by Automated (test code = 94723-2) RBC casts [Presence] in Urine none seen 0-1 by Computer assisted method (test code = 13554-0) Hyaline casts [Presence] in 0-4 0-4 Urine by Automated (test code = 92484-7) Epithelial cells [#/area] in none none-few Urine sediment by Automated count (test code = 65573-9) Granular casts [Presence] in none seen 0-1 Urine by Computer assisted method (test code = 17739-1) Bacteria [#/area] in Urine few none-few sediment by Automated count (test code = 78353-2) Leukocyte esterase [Presence] large negative A in Urine by Test strip (test code = 5799-2) Color of Urine (test code = yellow yellow, straw, chano 5778-6) Character of Urine (test code cloudy clear A = 63627-1) [facility]
[2023-04-12 11:26] LABS: Absolute Lymphocytes (CBC) 1.2 K/uL (0.7-4.9); Hematocrit 37.6 % (36.0-45.0); Lymphocytes % 23.7 % (15.3-44.8); MCV 90.9 fL (80-100); MPV 7.7 fL (7.6-11.3); Platelets 203 thou/uL (152-406); RBC Red Blood Cell Count 4.14 M/uL (3.86-4.86)
[2023-04-12 11:30] LABS: Protime INR 0.95
[2023-04-12 11:54] LABS: Potassium 4.1 mEq/L (3.5-5.1); Troponin High Sensitivity 8.4 pg/mL (<58.9)
--- NOTE | 2023-04-12 12:14 | RAD REPORT ---
EXAM DESCRIPTION: RADChest Single View04/12/2023 11:52 am CLINICAL HISTORY: CHEST PAIN COMPARISON: Chest Pa And Lat (2 Views) dated 06/24/2021; CHEST PA AND LAT 2 VIEW dated 09/23/2010; ANGIE ST SINGLE VIEW dated 10/14/2002 TECHNIQUE: Portable AP view of the chest. FINDINGS: The lungs are clear. Dextroconvex scoliosis of the upper to midthoracic spine limits evalu ation. No pneumothorax or effusion. The cardiomediastinal contours are unremarkable. IMPRESSION: No acute cardiopulmonary process.
--- NOTE | 2023-04-12 12:43 | RAD REPORT ---
EXAM DESCRIPTION: CT - Angio Aorta For Dissection - 04/12/2023 12:29 pm CLINICAL HISTORY: Chest pain radiating to the back. left sided pain COMPARISON: C Spine Wo Con dated 04/12/2023 TECHNIQUE: CT angiography of the aorta was performed with MIPs. All CT scans are performed using dose optimization technique as appropriate and may include automated exposure control or mA/KV adjustment according to patient size. 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 Mild atherosclerotic shelly quing is seen infrarenal abdominal aorta both common iliac arteries. The celiac axis, SMA, ARNALDO and re nal arteries are patent. No evidence of pulmonary embolism. The lungs are emphysematous with mild linear atelectasis in the lung bases. The liver demonstrates no focal mass or biliary dilatation.Mild fatty liver.The spleen, pancreas, adr enal glands and kidneys are within normal limits for arterial phase imaging. No bowel obstruction, free fluid or abscess.Sigmoid diverticulosis coli is present without diverticul itis.No pathologic enlarged lymphadenopathy identified.Distended urinary bladder which slightly exten ds into the left inguinal region. There is a prominent moderately severe levoscoliosis is present of the lumbar spine. IMPRESSION: No acute aortic finding is demonstrated.
--- NOTE | 2023-04-12 12:43 | RAD REPORT ---
EXAM DESCRIPTION: CT - C Spine Wo Con - 04/12/2023 12:29 pm CLINICAL HISTORY: Neck pain, radiates to left shoulder and left arm COMPARISON: None. TECHNIQUE: Axial thin cut noncontrast CT images of the cervical spine were obtained with sagittal an d coronal reconstruction images generated and reviewed. All CT scans are performed using dose optimization technique as appropriate and may include automated exposure control or mA/KV adjustment according to patient size. FINDINGS: Cervical body height and alignment are normal. Multilevel degenerative changes with up to severe disc height loss at C6-7, and variable degrees of n eural foraminal narrowing secondary to uncovertebral joint and facet arthropathy, up to moderate on t he left at C4-5 and C5-6, and on the right at C5-6 and C6-7. No acute fracture or suspicious focal osseous abnormality. No paraspinal mass or hematoma. Stable right more than left apical scarring. IMPRESSION: No acute osseous abnormality or subluxation. Degenerative changes as above.
--- NOTE | 2023-04-12 13:18 | EDPHYS ---
Physician Documentation [facility] Name: Kavitha Augustine Age: 77 yrs Sex: Female : 1945 Arrival Date: 04/12/2023 Time: : Bed 6 Private MD: Javed Zapata V ED Physician Chidi Alvarado HPI: 04/12 11:22 This 77 yrs old Female presents to ER via Wheelchair with complaints of Neck pain, Arm rn Pain. 11:23 The patient or guardian complains of pain. The complaints affect the anterior aspect of rn left shoulder and left arm. Onset: The symptoms/episode began/occurred this morning, 4 hour(s) ago. Modifying factors: The symptoms are alleviated by OTC meds, the symptoms are aggravated by nothing. Severity of symptoms: At their worst the symptoms were moderate, in the emergency department the symptoms have improved. The patient has not experienced similar symptoms in the past. Patient reports left sided neck/shoulder/arm pain that began this morning about 4 hours ago. states was having neck pain yesterday but no arm pain. 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 Patient states took an aspirin and now pain-free. No numbness or tingling.. Historical: - Allergies: 11:11 No Known Allergies; jl7 - Home Meds: 11:11 atorvastatin 10 mg Oral tab [Active]; spironolactone 25 mg Oral tab [Active]; valsartan jl7 80 mg Oral tab 1 tab 2 times per day [Active]; levothyroxine oral [Active]; - PMHx: 11:11 depressive disorder; Hypercholesterolemia; Hypertensive disorder; Hypothyroidism; jl7 - PSHx: 11:11 section; Total abdominal hysterectomy; jl7 - Immunization history:: Adult Immunizations unknown. - Social history:: Smoking status: Patient denies any tobacco usage or history of. - Family history:: not pertinent. - Hospitalizations: : No recent hospitalization is reported. ROS: 11:23 Constitutional: Negative for fever, chills, and weight loss, Neck: Positive for rn left-sided neck pain Cardiovascular: Negative for chest pain, palpitations, and edema, Respiratory: Negative for shortness of breath, cough, wheezing, and pleuritic chest pain, Abdomen/GI: Negative for abdominal pain, nausea, vomiting, diarrhea, and constipation, MS/Extremity: Negative for injury and deformity, Skin: Negative for injury, rash, and discoloration, Neuro: Negative for headache, weakness, numbness, tingling, and seizure Exam: 11:23 Constitutional: This is a well developed, well nourished patient who is awake, alert, rn and in no acute distress. Head/Face: Normocephalic, atraumatic. Neck: Trachea midline, no masses palpated, no vertebral point tenderness. Cardiovascular: Regular rate and rhythm. No pulse deficits. Respiratory: No increased work of breathing, no retractions or nasal flaring. Abdomen/GI: Soft, non-tender MS/ Extremity: Pulses equal, no cyanosis. Neurovascular intact. Full, normal range of motion. Equal circumference. Neuro: Awake and alert, GCS 15, oriented to person, place, time, and situation. Cranial nerves II-XII grossly intact. Motor strength 5/5 in all extremities. Sensory grossly intact. 12:22 ECG was reviewed by the Attending Physician. rn Vital Signs: 11:08 BP 152 / 62; Pulse 62; Resp 17; Temp 97.7; Pulse Ox 98% ; Weight 58.97 kg; jl7 11:11 BP 152 / 62; Pulse Ox 99% ; tm6 11:14 Pulse 59; Resp 20; Temp 97.7(O); tm6 11:40 BP 152 / 62; Pulse 60; Resp 18; Pulse Ox 100% on R/A; ld1 12:38 BP 139 / 61; Pulse 65; Pulse Ox 100% on R/A; tm6 MDM: 10:35 Patient medically screened. rn 13:13 Differential diagnosis: Radiculopathy, cervical disc disorder, cardiac problem, angina, rn myocardial infarction. Data reviewed: vital signs, nurses notes, lab test result(s), EKG, radiologic studies, CT scan, and as a result, I will discharge patient. Independent interpretation of the following test(s) in the Emergency Department EKG: See my EKG interpretation above X-Ray: My interpretation is Chest x-ray images negative for pneumothorax or cardiomegaly per my interpretation. Care significantly affected by the following chronic conditions: Hypertension. Counseling: I had a detailed discussion with the patient and/or guardian regarding the historical points, exam findings, and any diagnostic results supporting the discharge/admit diagnosis, radiology results, the need for outpatient follow up, to return to the emergency department if symptoms worsen or persist or if there are any questions or concerns that arise at home. Response to treatment: the patient's symptoms have resolved after treatment, the patient's condition has returned to base line, the patient is now symptom free, and as a result, I will discharge patient. Special discussion: I discussed with the patient/guardian in detail that at this point there is no indication for admission to the hospital. It is understood, however, that if the symptoms persist or worsen the patient needs to return immediately for re-evaluation. ED course: CT cervical spine shows C4-C7 disease, could explain her symptoms which are consistent with possible radiculopathy. Troponin is negative and no ischemia on EKG. CT aorta negative. Recommended to patient to get second troponin to rule her out, her and declined states that they are happy with given results at this time and would like to go home and follow-up with cardiology. Explained to them that this does not completely rule out a cardiology problem, and given strict return precautions and they understood. I have personally reviewed all of the results, including but not limited to blood tests and imaging deemed necessary to safely discharge this patient at this time. All results given to and printed out for patient. I personally went over all the results with the patient and answered all questions. Patient will follow-up with PCP and or specialist as discussed. Return precautions given and understood.. 04/12 11:12 Order name: Basic Metabolic Panel; Complete Time: 12: rn 04/12 11:12 Order name: CBC with Diff; Complete Time: 12: rn 04/12 11:12 Order name: NT PRO-BNP; Complete Time: 12: rn 04/12 11:12 Order name: PT-INR; Complete Time: 12: rn 04/12 11:12 Order name: Troponin HS; Complete Time: 12: rn 04/12 11:12 Order name: XRAY Chest (1 view); Complete Time: 12:55 rn 04/12 11:12 Order name: CT Aorta for Dissection; Complete Time: 12: rn 04/12 11:23 Order name: CT C Spine; Complete Time: 12:55 rn 04/12 11:12 Order name: Cardiac monitoring; Complete Time: 11: rn 04/12 11:12 Order name: EKG - Nurse/Tech; Complete Time: rn 04/12 11:12 Order name: IV Saline Lock; Complete Time: rn 04/12 11:12 Order name: Labs collected and sent; Complete Time: rn 04/12 11:12 Order name: O2 Per Protocol; Complete Time: rn 04/12 11:12 Order name: O2 Sat Monitoring; Complete Time: rn 04/12 11:27 Order name: Labs - recollect needed: recollect light blue tube; Complete Time: :37 bd EC: Rate is 60 beats/min. Rhythm is regular. Left axis deviation noted. QRS is positive in rn lead I and negative in lead aVF. QT interval is normal. No Q waves. T waves are Normal. No ST changes noted. Clinical impression: NSR w/ Non-specific ST/T Changes. Interpreted by me. Reviewed by me. Administered Medications: No medications were administered Disposition Summary: 04/12/23 13:18 Discharge Ordered Notes: Location: Home rn Problem: an ongoing problem rn Symptoms: have improved rn Condition: Stable rn Diagnosis - Pain in left arm rn - Cervical disc disorder with radiculopathy rn Followup: rn - With: Private Physician - When: As needed - Reason: Recheck today's complaints, Re-evaluation by your physician Discharge Instructions: - Discharge Summary Sheet rn - Cervical Radiculopathy rn - Musculoskeletal Pain rn Forms: - Medication Reconciliation Form rn - Thank You Letter rn - Antibiotic 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
--- NOTE | 2023-04-12 13:18 | ER ---
Nurse's Notes [facility] Name: Kavitha Augustine Age: 77 yrs Sex: Female : 1945 Arrival Date: 04/12/2023 Time: 10:29 Bed 6 Private MD: Javed Zapata V Diagnosis: Pain in left arm;Cervical disc disorder with radiculopathy Presentation: 04/12 11:08 Chief complaint: Patient states: Sudden left shoulder/neck pain, radiates to left arm, jl7 at 0700, took 325 Aspirin and seems to be a little better but still there. Coronavirus screen: At this time, the client does not indicate any symptoms associated with coronavirus-19. Ebola Screen: No symptoms or risks identified at this time. Initial Sepsis Screen: Does the patient meet any 2 criteria? No. Patient's initial sepsis screen is negative. Does the patient have a suspected source of infection? No. Patient's initial sepsis screen is negative. Risk Assessment: Do you want to hurt yourself or someone else? Patient reports no desire to harm self or others. Onset of symptoms was April 12, 2023 at 07:00. 11:08 Method Of Arrival: Wheelchair jl7 11:08 Acuity: WANDA 2 jl7 Triage Assessment: 11:11 General: Appears in no apparent distress. uncomfortable, Behavior is calm, cooperative, jl7 appropriate for age. Pain: Complains of pain in posterior aspect of left shoulder Pain radiates to left arm. Historical: - Allergies: 11:11 No Known Allergies; jl7 - Home Meds: 11:11 atorvastatin 10 mg Oral tab [Active]; spironolactone 25 mg Oral tab [Active]; valsartan jl7 80 mg Oral tab 1 tab 2 times per day [Active]; levothyroxine oral [Active]; - PMHx: 11:11 depressive disorder; Hypercholesterolemia; Hypertensive disorder; Hypothyroidism; jl7 - PSHx: 11:11 section; Total abdominal hysterectomy; jl7 - Immunization history:: Adult Immunizations unknown. - Social history:: Smoking status: Patient denies any tobacco usage or history of. - Family history:: not pertinent. - Hospitalizations: : No recent hospitalization is reported. Screenin:15 [facility] ED Fall Risk Assessment (Adult) History of falling in the last 3 months, tm6 including since admission No falls in past 3 months (0 pts). Abuse screen: Denies threats or abuse. Denies injuries from another. Nutritional screening: No deficits noted. Tuberculosis screening: No symptoms or risk factors identified. Assessment: 11:14 General: Appears in no apparent distress. Behavior is calm, cooperative, appropriate tm6 for age. Pain: Denies pain. Neuro: No deficits noted. Level of Consciousness is awake, alert, obeys commands, Oriented to person, place, time, situation. Cardiovascular: Capillary refill < 3 seconds Patient's skin is warm and dry. Rhythm is sinus rhythm. Respiratory: Airway is patent Respiratory effort is even, unlabored, Respiratory pattern is regular, symmetrical. GI: Abdomen is round non-distended. : No signs and/or symptoms were reported regarding the genitourinary system. EENT: No signs and/or symptoms were reported regarding the EENT system. Derm: No signs and/or symptoms reported regarding the dermatologic system. Musculoskeletal: No signs and/or symptoms reported regarding the musculoskeletal system. 12:39 Reassessment: Patient appears in no apparent distress at this time. Patient and/or tm6 family updated on plan of care and expected duration. Pain level reassessed. Patient is alert, oriented x 3, equal unlabored respirations, skin warm/dry/pink. Vital Signs: 11:08 BP 152 / 62; Pulse 62; Resp 17; Temp 97.7; Pulse Ox 98% ; Weight 58.97 kg; jl7 11:11 BP 152 / 62; Pulse Ox 99% ; tm6 11:14 Pulse 59; Resp 20; Temp 97.7(O); tm6 11:40 BP 152 / 62; Pulse 60; Resp 18; Pulse Ox 100% on R/A; ld1 12:38 BP 139 / 61; Pulse 65; Pulse Ox 100% on R/A; tm6 Vitals: 11:14 Cardiac Rhythm Assessment Regular Sinus rhythm. tm6 ED Course: 10:33 Patient arrived in ED. mr 10:34 Javed Zapata MD is Private Physician. mr 10:35 Chidi Alvarado MD is Attending Physician. rn 11:11 Triage completed. jl7 11:11 Dayron Myers, JAMEL is Primary Nurse. tm6 11:11 Arm band placed on right wrist. jl7 11:15 Patient has correct armband on for positive identification. Placed in gown. Bed in low tm6 position. Call light in reach. Side rails up X2. Provided Education on: need for VS monitoring. Client placed on continuous cardiac and pulse oximetry monitoring. NIBP monitoring applied. tower attendant on. Door closed. Noise minimized. 11:54 XRAY Chest (1 view) In Process Unspecified. EDMS 12:31 CT C Spine In Process Unspecified. EDMS 12:31 CT Aorta for Dissection In Process Unspecified. EDMS 13:22 No provider procedures requiring assistance completed. IV discontinued, intact, ld1 bleeding controlled, No redness/swelling at site. Administered Medications: No medications were administered Medication: 13:22 VIS not applicable for this client. ld1 Outcome: 13:18 Discharge ordered by . rn 13:22 Discharged to home ambulatory, with family, ld1 13:22 Condition: stable 13:22 Discharge instructions given to patient, family, Instructed on discharge instructions, follow up and referral plans. Demonstrated understanding of instructions, follow-up care, 13:22 Patient left the ED. ld1 Signatures: Dispatcher [employer] EDNY Ele Minaya, Reg Reg mr Chidi Alvarado MD MD rn Leal, Jahala, RN RN jl7 Viki Goldman, JAMEL RN ld1 Dayron Myers RN RN tm6
[2023-04-12 14:10] VITALS: TEMP 97.7
[2023-04-12 14:20] VITALS: O2SAT 100
[2023-04-12 14:21] VITALS: BP 139/61
== END 2023-04-12 13:22 | disposition home or self-care (01) ==
LOC: ER 10:29
DX: M50.10 Cervical disc disorder with radiculopathy, unspecified cervical region (principal); M79.602 Pain in left arm; E78.00 Pure hypercholesterolemia, unspecified; E03.9 Hypothyroidism, unspecified; I10 Essential (primary) hypertension; F32.A Depression, unspecified
CPT/HCPCS: 85025; 80048; 36415; 85610; 84484; 83880; 72125; 71275; 74175; 71045; 99284; Q9967

== ENCOUNTER 2024-04-23 12:14 | Emergency (ER) | payer OTHER ==
[2024-04-23] MEDS ORDERED: ACETAMINOPHEN 500 MG TAB ONE (13:03)
[2024-04-23] MEDS ORDERED: methocarbamoL 500 MG TAB ONE (13:03)
[2024-04-23] MEDS ORDERED: LIDOCAINE 4% PATCH ONE (13:04)
--- NOTE | 2024-04-23 13:50 | RAD REPORT ---
EXAMINATION: CT CERVICAL SPINE WITHOUT CONTRAST HISTORY: neck injury after fall COMPARISON: None TECHNIQUE: Multiple contiguous axial images were obtained in a CT of the cervical spine without IV co ntrast. Sagittal and coronal reformats were performed. One or more of the following dose reduction techniques were used: Automated exposure control, adjustment of the mA and kV according to patient si ze, and iterative reconstruction. Unless otherwise specified, incidental findings do not require dedicated imaging follow-up. FINDINGS: The vertebral bodies demonstrate normal height and alignment without fracture or subluxation. Mild d isc thinning with posterior osteophyte formation lower cervical levels. No prevertebral soft tissue swelling is seen. Facet hypertrophic changes are present bilaterally. The odontoid appears normal and the lateral vladimir s are symmetric. Scarring suspected in both lung apices. IMPRESSION: No evidence of acute osseous abnormality of the cervical spine.
--- NOTE | 2024-04-23 13:53 | RAD REPORT ---
EXAMINATION: Abdomen Wo Contrast CLINICAL INDICATION: Female, 78 years old. RIGHT LATERAL CHEST WALL INJURY TECHNIQUE: CT abdomen was performed, without IV contrast, as per department protocol. Axial, sagittal and coronal reconstructions were obtained. One or more of the following dose reduction techniques were used: Automated exposure control, adjustment of the mA and kV according to the patient size, and iterative reconstruction. Unless otherwise specified, incidental findings do not require dedicated imaging follow-up. COMPARISON: No prior exam. FINDINGS: The lack of intravenous contrast limits the sensitivity of this exam for evaluation of solid visceral organs, vascular structures, and retroperitoneum. LOWER CHEST: The visualized lung bases are clear. Small hiatal hernia. LIVER: Normal in size and contour. No focal lesion. BILIARY SYSTEM: No suspicious abnormalities. SPLEEN: Normal size. No focal lesion. PANCREAS: No mass, ductal dilation, or torin-pancreatic fluid. ADRENALS: Normal; no mass. KIDNEYS: Normal size and contour. No hydronephrosis. GASTROINTESTINAL TRACT: No evidence of bowel obstruction, significant free fluid, free air or abscess . LYMPH NODES: No lymphadenopathy. MUSCULOSKELETAL: No acute or suspicious osseous abnormality. ADDITIONAL FINDINGS: Aortic atherosclerosis. IMPRESSION: No acute or concerning abnormalities in the abdomen, with evaluation limited by lack of IV contrast.
--- NOTE | 2024-04-23 13:55 | RAD REPORT ---
EXAMINATION: CT CHEST WITHOUT CONTRAST CLINICAL INDICATION: R lateral chest wall injury TECHNIQUE: Routine CT scan of the chest without intravenous contrast. One or more of the following do se reduction techniques were used: Automated exposure control, adjustment of the mA and/or kV according to patient size, and/or iterative reconstruction. Unless otherwise specified, incidental fi ndings do not require dedicated imaging follow-up. COMPARISON: 04/21/2021 FINDINGS: LOWER NECK: Visualized thyroid gland and soft tissues are normal. Aberrant right subclavian artery, n ormal variant anatomy. LUNGS: The lungs are clear. No evidence of airspace or interstitial process. No worrisome nodules. PLEURA: No pleural effusion. No pneumothorax. . MEDIASTINUM AND LYMPH NODES: No mediastinal mass or fluid collection. Normal size mediastinal, hilar, and axillary lymph nodes. OSSEOUS STRUCTURES AND CHEST WALL: Intact. S-shaped thoracolumbar scoliosis. UPPER ABDOMEN: No significant abnormalities. IMPRESSION: No acute or concerning intrathoracic findings. Examination limited by lack of IV contrast.
--- NOTE | 2024-04-23 14:04 | EDPHYS ---
Physician Documentation [facility] Name: Kavitha Augustine Age: 78 yrs Sex: Female : 1945 Arrival Date: 04/23/2024 Time: 12:14 Bed 14 Private MD: ED Physician Jian Keith HPI: 04/23 12:44 This 78 yrs old Female presents to ER via Wheelchair with complaints of Fall ec2 Injury, Back Injury. 12:44 Patient arrives today for evaluation after ground-level fall. Patient plaint of right ec2 lateral back pain. Patient reports no LOC, no head strike. Does complain of neck pain however has chronic neck pain.. Historical: - Allergies: 12:31 No Known Allergies; cm10 - PMHx: 12:31 depressive disorder; Hypercholesterolemia; Hypertensive disorder; Hypothyroidism; cm10 - PSHx: 12:31 section; Total abdominal hysterectomy; cm10 - Immunization history:: Adult Immunizations up to date. - Infectious Disease History:: Denies. - Immunization history: Last tetanus immunization: unknown. - Social history:: Smoking status: unknown. ROS: 12:44 Constitutional: as per hpi ec2 Exam: 12:44 Constitutional: GEN: No acute distress HEENT: -Head: no deformities -Eyes: EOMI CV: ec2 regular rate LUNGS: no respiratory distress ABD: non-tender SKIN: no wounds appreciated MSK: No C/T/L spine deformities, right lateral TTP to the mid back. RUE w/o bony deformity LUE w/o bony deformity RLE w/o bony deformity LLE w/o bony deformity NEURO: moves all extremities equally, GCS 15 (E4, V5, M6) Vital Signs: 12:28 BP 166 / 73; Pulse 56; Resp 18; Temp 97.8(O); Pulse Ox 100% on R/A; Weight 56.7 kg; cm10 Height 5 ft. 4 in. ; Pain 10/10; 14:29 BP 152 / 78; Pulse 54; Resp 18; Temp 97.9; Pulse Ox 99% on R/A; ph 12:28 Body Mass Index 21.46 (56.70 kg, 162.56 cm) cm10 12:28 Pain Scale: Adult cm10 [place] Coma Score: 13:00 Eye Response: spontaneous(4). Motor Response: obeys commands(6). Verbal Response: ph oriented(5). Total: 15. 14:29 Eye Response: spontaneous(4). Motor Response: obeys commands(6). Verbal Response: ph oriented(5). Total: 15. Trauma Score (Adult): 13:00 Eye Response: spontaneous(1); Verbal Response: oriented(1); Motor Response: obeys ph commands(2); Systolic BP: > 89 mm Hg(4); Respiratory Rate: 10 to 29 per min(4); Caleb Score: 15; Trauma Score: 12 14:29 Eye Response: spontaneous(1); Verbal Response: oriented(1); Motor Response: obeys ph commands(2); Systolic BP: > 89 mm Hg(4); Respiratory Rate: 10 to 29 per min(4); [place] Score: 15; Trauma Score: 12 MDM: 12:31 Medical Screening Exam initiated ec2 12:44 Data reviewed: vital signs, nurses notes. ED course: Patient arrives today for right ec2 lateral back pain in the setting of a recent fall. Examination yields right lateral TTP to the ribs will obtain CT of the thorax as well as CT of the C-spine. Differential clued C-spine fracture, rib fracture.. 14:03 ED course: Imaging shows no fractures. Will discharge home and prescribe the patient ec2 Robaxin. Return precautions given.. 11 12:38 Order name: Thorax Wo Con CT; Complete Time: 14:02 ec2 04/23 12:38 Order name: CT C Spine; Complete Time: 14:02 ec2 04/23 13:24 Order name: Abdomen Wo Contrast; Complete Time: 14:02 EDMS Administered Medications: 13:16 Drug: Lidoderm Topical Patch 5 % (700 mg/patch) 1 patches Topical once; leave on for 12 ph hours; cover most painful area; may cut into smaller pieces Route: Topical; Site: affected area; 13:59 Follow up: Response: No adverse reaction ph 13:16 Drug: Acetaminophen PO 1000 mg PO once Route: PO; ph 13:59 Follow up: Response: No adverse reaction ph 13:16 Drug: Methocarbamol PO 500 mg PO once Route: PO; ph 14:00 Follow up: Response: No adverse reaction ph Disposition Summary: 04/23/24 14:03 Discharge Ordered Notes: Location: Home ec2 Condition: Stable ec2 Diagnosis - Rib Contusion ec2 Followup: ec2 - With: Private Physician - When: - Reason: Re-evaluation by your physician Discharge Instructions: - Discharge Summary Sheet ec2 - Rib Contusion ec2 Forms: - Medication Reconciliation Form ec2 - Antibiotic Education ec2 - Prescription Opioid Use ec2 - Patient Portal Instructions ec2 - Leadership Thank You Letter ec2 Prescriptions: - methocarbamol 500 mg Oral tablet - take 1 tablet ORAL route 4 times per day; 15 tablet; Refills: 0, Product ec2 Selection Permitted Signatures: Dispatcher [employer] EDJeanne Boss, RN RN Alexandra Moreno RN RN cm10 Jian Keith MD MD ec2 Corrections: (The following items were deleted from the chart) 12:38 12:38 Thorax Wo Con+CT.RAD.BRZ ordered. EDMS EDMS 12:38 12:38 C Spine Wo Con+CT.RAD.BRZ ordered. EDMS EDMS
--- NOTE | 2024-04-23 14:04 | ER ---
Nurse's Notes [facility] Name: Kavitha Augustine Age: 78 yrs Sex: Female : 1945 Arrival Date: 04/23/2024 Time: 12:14 Bed 14 Private MD: Diagnosis: Rib Contusion Presentation: 04/23 12:28 Chief complaint: Patient states: Fall this morning. Pt states that she was standing up cm10 after using the restroom she lost her balance and fell back. Pt states that she hit her back and his having pain to her right sided ribs. Pt also complaining of neck pain. No LOC. Coronavirus screen: Client denies travel out of the [place] in the last 14 days. Ebola Screen: Patient denies travel to an Ebola-affected area in the 21 days before illness onset. No symptoms or risks identified at this time. Initial Sepsis Screen: Does the patient meet any 2 criteria? No. Patient's initial sepsis screen is negative. Does the patient have a suspected source of infection? No. Patient's initial sepsis screen is negative. Risk Assessment: Do you want to hurt yourself or someone else? Patient reports no desire to harm self or others. Onset of symptoms was April 23, 2024. 12:28 Method Of Arrival: Wheelchair cm10 12:28 Acuity: WANDA 4 cm10 13:00 Care prior to arrival: None. Mechanism of Injury: Fall from standing position. Trauma ph event details: Injury occurred in the [facility], Injury occurred: at home. Injury occurred: April 23, 2024. Triage Assessment: 12:32 General: Appears in no apparent distress. uncomfortable, Behavior is calm, cooperative. cm10 Pain: Complains of pain in right subscapular area and right mid back Pain currently is 10 out of 10 on a pain scale. Neuro: No deficits noted. Level of Consciousness is awake, alert, obeys commands, Oriented to person, place, time, situation, Appropriate for age. Respiratory: No deficits noted. Airway is patent Respiratory effort is even, unlabored, Respiratory pattern is regular, symmetrical. Trauma Activation: Not Applicable Physician: ED Physician; Name: ; Notified At: ; Arrived At: Physician: General Surgeon; Name: ; Notified At: ; Arrived At: Physician: Radiology; Name: ; Notified At: ; Arrived At: Physician: Respiratory; Name: ; Notified At: ; Arrived At: Physician: Lab; Name: ; Notified At: ; Arrived At: Historical: - Allergies: 12:31 No Known Allergies; cm10 - PMHx: 12:31 depressive disorder; Hypercholesterolemia; Hypertensive disorder; Hypothyroidism; cm10 - PSHx: 12:31 section; Total abdominal hysterectomy; cm10 - Immunization history:: Adult Immunizations up to date. - Infectious Disease History:: Denies. - Immunization history: Last tetanus immunization: unknown. - Social history:: Smoking status: unknown. Screenin:57 [facility] ED Fall Risk Assessment (Adult) History of falling in the last 3 months, ph including since admission Yes- single mechanical fall (1 pt) Confusion or Disorientation No (0 pts) Intoxicated or Sedated No (0 pts) Impaired Gait No (0 pts) Mobility Assist Device Used No (0 pt) Altered Elimination No (0 pt) Score/Fall Risk Level 0 - 2 = Low Risk Oriented to surroundings, Maintained a safe environment, Hourly rounding (assess needs \T\ fall precautionary measures) done, Used ambulatory aids as needed (educated on \T\ assisted with). Abuse screen: Denies threats or abuse. Denies injuries from another. 13:58 Nutritional screening: No deficits noted. Tuberculosis screening: No symptoms or risk ph factors identified. Primary Survey: 13:00 NO uncontrolled hemorrhage observed. A: The client is awake and alert. The airway is ph patent. Breathing/Chest: Spontaneous respiratory effort, equal unlabored respirations, breath sounds clear bilaterally, regular pattern, symmetrical chest rise and fall. Circulation: No external hemorrhage present. Regular and strong central pulse, skin warm/dry/normal color. Disability Pupils are equal, round, reactive to light and accommodation. Client is alert. Exposure/Environment: There is no evidence of uncontrolled external bleeding. No obvious injuries are noted at this time. A warming method has been applied: A warm blanket has been provided to the patient. 13:59 Reassessment Alertness and Airway: Awake and alert. The airway is patent. Breathing: ph Spontaneous respiratory effort, equal unlabored respirations, breath sounds clear bilaterally, regular pattern with symmetrical chest rise and fall. Circulation: No external hemorrhage noted. Regular and strong central pulse, skin warm/dry/normal color. Disability: Pupils Pupils are equal, round, reactive to light and accomodation. Alert. Secondary Survey: 13:59 HEENT: No deficits noted. Gastrointestinal: No deficits noted. ph Assessment: 13:00 General: Appears in no apparent distress. uncomfortable, well groomed, Behavior is ph calm, cooperative, appropriate for age. Pain: Complains of pain in right mid back. Neuro: Level of Consciousness is awake, alert, obeys commands, Oriented to person, place, time, situation. Cardiovascular: Capillary refill < 3 seconds in bilateral fingers Patient's skin is warm and dry. Respiratory: Airway is patent Respiratory effort is even, unlabored, Respiratory pattern is regular, symmetrical. Musculoskeletal: Circulation, motion, and sensation intact. Range of motion: intact in all extremities. 14:29 Reassessment: Patient appears in no apparent distress at this time. Patient and/or ph family updated on plan of care and expected duration. Pain level reassessed. Patient is alert, oriented x 3, equal unlabored respirations, skin warm/dry/pink. Vital Signs: 12:28 BP 166 / 73; Pulse 56; Resp 18; Temp 97.8(O); Pulse Ox 100% on R/A; Weight 56.7 kg; cm10 Height 5 ft. 4 in. ; Pain 10/10; 14:29 BP 152 / 78; Pulse 54; Resp 18; Temp 97.9; Pulse Ox 99% on R/A; ph 12:28 Body Mass Index 21.46 (56.70 kg, 162.56 cm) cm10 12:28 Pain Scale: Adult cm10 Camargo Coma Score: 13:00 Eye Response: spontaneous(4). Motor Response: obeys commands(6). Verbal Response: ph oriented(5). Total: 15. 14:29 Eye Response: spontaneous(4). Motor Response: obeys commands(6). Verbal Response: ph oriented(5). Total: 15. Trauma Score (Adult): 13:00 Eye Response: spontaneous(1); Verbal Response: oriented(1); Motor Response: obeys ph commands(2); Systolic BP: > 89 mm Hg(4); Respiratory Rate: 10 to 29 per min(4); Camargo Score: 15; Trauma Score: 12 14:29 Eye Response: spontaneous(1); Verbal Response: oriented(1); Motor Response: obeys ph commands(2); Systolic BP: > 89 mm Hg(4); Respiratory Rate: 10 to 29 per min(4); Caleb Score: 15; Trauma Score: 12 ED Course: 12:16 Patient arrived in ED. ra3 12:18 Jian Keith MD is Attending Physician. ec2 12:18 Jeanne Helms, RN is Primary Nurse. ph 12:31 Triage completed. cm10 12:32 Arm band placed on right wrist. Patient placed in an exam room, on a stretcher. cm10 13:[address] In Process Unspecified. EDMS 13:34 CT C Spine In Process Unspecified. EDMS 13:34 Abdomen Wo Contrast In Process Unspecified. EDMS 13:58 Patient has correct armband on for positive identification. Bed in low position. Call ph light in reach. Side rails up X 1. Pulse ox on. NIBP on. Door closed. Noise minimized. Warm blanket given. Pillow given. 13:58 Patient maintains SpO2 saturation greater than 95% on room air. ph 13:58 Thermoregulation: Adriel blanket applied. ph 14:30 No provider procedures requiring assistance completed. Patient did not have IV access ph during this emergency room visit. Administered Medications: 13:16 Drug: Lidoderm Topical Patch 5 % (700 mg/patch) 1 patches Topical once; leave on for 12 ph hours; cover most painful area; may cut into smaller pieces Route: Topical; Site: affected area; 13:59 Follow up: Response: No adverse reaction ph 13:16 Drug: Acetaminophen PO 1000 mg PO once Route: PO; ph 13:59 Follow up: Response: No adverse reaction ph 13:16 Drug: Methocarbamol PO 500 mg PO once Route: PO; ph 14:00 Follow up: Response: No adverse reaction ph Medication: 13:59 VIS not applicable for this client. ph Intake: 14:30 PO: 0ml; Total: 0ml. ph Output: 14:30 Urine: 0ml; Total: 0ml. ph Outcome: 14:03 Discharge ordered by . ec2 14:30 Discharged to home ambulatory, ph 14:30 Condition: good 14:30 Discharge instructions given to patient, Instructed on discharge instructions, follow up and referral plans. medication usage, Demonstrated understanding of instructions, follow-up care, medications, Prescriptions given X 1, 14:30 Patient's length of stay was not longer than 2 hours. 14:31 Patient left the ED. ph Signatures: Dispatcher [employer] Jeanne Miguel RN RN ph Martinez, Clarissa, RN RN cm10 Jian Keith MD MD ec2 Belem Bonner ra3
[2024-04-23 17:14] VITALS: BP 152/78; TEMP 97.9; O2SAT 99
== END 2024-04-23 14:31 | disposition home or self-care (01) ==
LOC: ER 12:14
DX: S20.211A Contusion of right front wall of thorax, initial encounter (principal); M54.2 Cervicalgia; W18.30XA Fall on same level, unspecified, initial encounter
CPT/HCPCS: 74150; 71250; 72125; 99284; J2003